=== PATIENT | female | born 1950 | race Caucasian/White ===

== ENCOUNTER 2018-09-22 19:32 | Emergency (ER) | payer MEDICARE, OTHER ==
[~2018-09-22] VITALS: Ht 180.3 cm; Wt 78.0 kg
[~2018-09-22 19:32] MED LIST: ALPRAZOLAM0.25 MG PO; AMITRIPTYLINE H50 MG PO; FENOFIBRATE145 MG; FLUOXETINE HCL20 MG PO; GABAPENTIN300 MG PO; LEVOTHYROXINE100 MCG PO; MELATONIN3 MG PO; OMEPRAZOLE40 MG PO; PRAVASTATIN SOD20 MG PO; ROPINIROLE HCL0.5 MG PO; TIZANIDINE HCL4 MG PO; ULTRAM50 MG PO
--- OUTSIDE RECORDS SUMMARY | 2018-09-22 19:34 | XMS REPORT | Summary of Care ---
Author Organization Unknown Address Unknown Phone Unavailable Encounter HQ Encntr_alias(FIN) [id number] Date(s): 09/26/14 - 09/26/14 [facility] Outpatient Imaging - [address] [address]- [place] Discharge Disposition: Home Physician Attending: Ronnie Milligan MD Reason for Visit 461.0 - AC MAXILLARY SI Problem List No data available for this section Allergies, Adverse Reactions, Alerts No data available for this section Medications No data available for this section Medications Administered During Your Visit No data available for this section Immunizations No data available for this section
--- OUTSIDE RECORDS SUMMARY | 2018-09-22 19:34 | XMS REPORT | Summary of Care ---
Author Author [facility] Address Unknown Phone Unavailable Encounter Encntr_alikailash([facility]) [phone] Date(s): 03/01/15 - 03/30/15 [facility] Discharge Disposition: Home Attending Physician: Rupesh Rowley MD Vital Signs No data available for this section Problem List No data available for this section Allergies, Adverse Reactions, Alerts No data available for this section Medications No data available for this section Results No data available for this section Immunizations No data available for this section Procedures No data available for this section Social History No data available for this section Assessment and Plan No data available for this section
--- OUTSIDE RECORDS SUMMARY | 2018-09-22 19:34 | XMS REPORT | Summary of Care ---
Author Author [facility] Outpatient Imaging [facility] Outpatient Imaging [facility] Address Unknown Phone Unavailable Encounter HQ Encntr_alias(FIN) [id number] Date(s): 10/08/15 - 10/08/15 [facility] Outpatient Imaging [facility] [address] [facility], [address] [place], [place] [id number] [place] [address] [phone] Discharge Disposition: Home Attending Physician: Ronnie Milligan MD Vital Signs No data available for [...]
--- OUTSIDE RECORDS SUMMARY | 2018-09-22 19:34 | XMS REPORT | Continuity of Care Document ---
Author Author [facility] Organization Interface Address Unknown Phone Unavailable Problems Problem Status Onset Date Classification Date Reported Comments Source UNK Active 11/07/2015 [facility] Z01.818 - ENCOUNTER FOR OTHER PREPROCEDU Active 10/08/2015 [facility] MS (<span ID="[id number]</span>) Active 08/16/1982 Problem 04/03/2016 [facility] [place] Anxiety Res[facility] [facility] Cholesterol level<sup>1</sup> Resolved Problem 04/03/[address] [facility] Depression [facility] Problem [facility]/03[facility] GERD - Gastro-esophageal reflux disease Resolved Problem 04/03/2016 [facility] Hypothyroidism Resolved Problem [facility]/03/[address] [facility] Final: Pain in left knee 02/01/2016 [facility] LEFT KNEE DJD Active [facility] UNILATERAL PRIMARY OSTEOARTHRITIS, LEFT Active [facility] PAIN IN LEFT KNEE Active [facility] JOINT CAMP S/P LT TKA Active [facility] Medications Medication Details Route Status Patient Instructions Ordering Provider Order Date Source dexamethasone 2 mg, 0.5 tab, Route: PO, Drug form: TAB, ONCE, Start date: 01/31/16 9:00:00 CDT, Stop date: 01/31/16 9:00:00 CDTNotes: Give with food. (Same As: Decadron) No Longer Active 01/31/2016 [facility] dexamethasone 4 mg, 1 tab, Route: PO, Drug form: TAB, ONCE, Start date: 01/30/16 9:00:00 CDT, Stop date: 01/30/16 9:00:00 CDTNotes: Give with food. (Same As: Decadron) Inactive 01/30/2016 [facility] tranexamic acid (ANES) Route: IV, Drug form: INJ, ONCE, Stop date: 01/30/16 7:26:00 CDT Inactive 01/30/2016 [facility] Saline Flush 0.9% 10 ml, Route: IVP, Drug Form: INJ, Dosing Weight 80, kg, Q12H, Start date: 01/29/16 21:00:00 CDT, Duration: 30 day, Stop date: 02/28/16 9:00:00 CDTNotes: (Same as: BD Posiflush) No Longer Active 01/30/2016 [facility] enoxaparin 40 mg/0.4 mL subcutaneous solution 40 mg=0.4 mL, SUB-Q, [id number], X 10 day, # 4 mL, 0 Refill(s) Active 01/29/2016 [facility] Saline Flush 0.9% 10 ml, Route: IVP, Drug Form: INJ, Dosing Weight 80, kg, PRN, PRN Line Flush, Start date: 01/29/16 9:54:00 CDT, Duration: 30 day, Stop date: 02/28/16 9:53:00 CDTNotes: (Same as: BD Posiflush) No Longer Active 01/29/2016 [facility] enoxaparin 40 mg/0.4 mL subcutaneous solution 40 mg=0.4 mL, SUB-Q, [id number], # 1 mL, 0 Refill(s), called to pharmacy Inactive 01/29/2016 [facility] dexamethasone 4 mg oral tablet 2 mg=0.5 tab, PO, ONCE, # 1 tab, 0 Refill(s) Active 01/29/2016 [facility] Acetaminophen 325 MG / Oxycodone Hydrochloride 10 MG Oral Tablet [Percocet 10/325] 1 tab, PO, Q4H, PRN Pain, # 90 tab, 0 Refill(s), given to patient No Longer Active 01/29/2016 [facility] Acetaminophen 325 MG / Oxycodone Hydrochloride 10 MG Oral Tablet [Percocet 10/325] 1 tab, Route: PO, Drug Form: TAB, Dosing Weight 79.091, kg, Q4H, PRN Pain Score 6-10, Start date: 01/29/16 9:18:00 CDT, Duration: 30 day, Stop date: 02/28/16 9:17:00 CDT Inactive 01/29/2016 [facility] Lovenox 40 mg, 0.4 mL, Route: SUB-Q, Drug form: INJ, [id number], Start date: 01/29/16 9:00:00 CDT, Duration: 30 day, Stop date: 02/27/16 9:00:00 CDTNotes: (Same as: Lovenox) No Longer Active 01/29/2016 [facility] dexamethasone 4 mg, 1 mL, Route: IV, Drug form: INJ, ONCE, Start date: 01/29/16 9:00:00 CDT, Stop date: 01/29/16 9:00:00 CDTNotes: Concentration: 4mg/ml Inactive 01/29/2016 [facility] Zofran 4 mg, 2 mL, Route: IVP, Drug form: INJ, Q6H, PRN Nausea & Vomiting, Start date: 01/29/16 8:00:00 CDT, Stop date: 02/28/16 7:59:00 CDTNotes: (Same as: Zofran) MEDICATION WASTE Product Size: 4 mg Product Wasted: ___ mg No Longer Active 01/29/2016 [facility] Vancomycin 6.67 MG/ML Injectable Solution 1,000 mg, Route: IVPB, [id number], Dosing Weight 80, kg, Time Critical Medication, Start date: 01/28/16 20:00:00 CDT, Duration: 2 doses or times, Stop date: 01/29/16 8:00:00 CDT, Pharmacy to adjust dose for renal functionNotes: TIME CRITICAL MEDICATION (Same As: Vancocin) Infusion rate 2001 mg: infuse over 2.5 hours MEDICATION WASTE Product Size: 1000 mg Product Wasted: ___ mg No Longer Active 01/29/2016 [facility] Docusate 100 mg, 1 cap, Route: PO, Drug form: CAP, BID, Dosing Weight 80, kg, Start date: 01/28/16 17:00:00 CDT, Duration: 30 day, Stop date: 02/27/16 9:00:00 CDTNotes: (Same as: Colace) (Do Not Crush) No Longer Active 01/28/2016 [facility] Ketorolac 15 mg, 1 mL, Route: IV, Drug form: INJ, Q8H, Dosing Weight 80, kg, Start date: 01/28/16 16:26:00 CDT, Duration: 2 day, Stop date: 01/30/16 16:00:00 CDTNotes: (Same as:Toradol) IV bolus must be given >15 seconds. Give IM administration slowly and deeply into the muscle. Not for use > 4 days. No Longer Active 01/28/2016 [facility] Tylenol 325 mg, 1 tab, Route: PO, Drug form: TAB, Q3H, PRN Pain Score 7-10, Start date: 01/28/16 16:20:00 CDT, Duration: 30 day, Stop date: 02/27/16 16:19:00 CDTNotes: Do not exceed 4 gm/day. (Same as: Tylenol) No Longer Active 01/28/2016 [facility] OxyIR 10 mg, 2 tab, Route: PO, Drug form: TAB, Q3H, PRN Pain Score 7-10, Start date: 01/28/16 16:20:00 CDT, Stop date: 02/27/16 16:19:00 CDTNotes: (Same as: Roxicodone) No Longer Active 01/28/2016 [facility] Zofran 4 mg, 2 mL, Route: IV, Drug form: INJ, Q8H, Dosing Weight 80, kg, Start date: 01/28/16 16:00:00 CDT, Duration: 3 doses or times, Stop date: 01/29/16 8:00:00 CDTNotes: (Same as: Zofran) MEDICATION WASTE Product Size: 4 mg Product Wasted: ___ mg No Longer Active 01/28/2016 [facility] Clindamycin 150 MG/ML Injectable Solution 600 mg, 50 mL, Route: IVPB, Drug form: INJ, Q6H, Dosing Weight 80, kg, Start date: 01/28/16 15:00:00 CDT, Duration: 3 doses or times, Stop date: 01/29/16 3:00:00 CDT No Longer Active 01/28/2016 [facility] Cleocin Phosphate (ANES) Route: IV, Drug form: INJ, ONCE, Stop date: 01/28/16 10:10:00 CDT Inactive 01/28/2016 [facility] ketOROLAC (ANES) IV, ONCE Inactive 01/28/2016 [facility] ondansetron (ANES) Route: IV, Drug form: INJ, ONCE, Stop date: 01/28/16 10:05:00 CDT Inactive 01/28/2016 [facility] Enoxaparin 40 mg, Route: SUB-Q, Drug form: INJ, [id number], Dosing Weight 80, kg, Start date: 01/28/16 10:00:00 CDT, Duration: 30 day, Stop date: 02/26/16 10:00:00 CDT Inactive 01/28/2016 [facility] Diphenhydramine 12.5 mg, 0.5 tab, Route: PO, Drug form: TAB, Q6H, Dosing Weight 80, kg, PRN Itching, Start date: 01/28/16 9:54:00 CDT, Duration: 30 day, Stop date: 02/27/16 9:53:00 CDT No Longer Active 01/28/2016 [facility] Bisacodyl 10 mg, 1 supp, Route: LA, Drug form: SUPP, Daily, Dosing Weight 80, kg, PRN Constipation, Start date: 01/28/16 9:54:00 CDT, Duration: 30 day, Stop date: 02/27/16 9:53:00 CDTNotes: (Same As: Dulcolax, Bisco-Lax) No Longer Active 01/28/2016 [facility] Dexamethasone 2 mg, Route: PO, ONCE, Dosing Weight 80, kg, Start date: 01/28/16 9:54:00 CDT, Stop date: 01/28/16 9:54:00 CDT Inactive 01/28/2016 [facility] Tranexamic Acid 1,000 mg, 10 mL, Route: IV, ONCE, Dosing Weight 80, kg, Start date: 01/28/16 9:54:00 CDT, Stop date: 01/28/16 9:54:00 CDTNotes: (Same As: Cyklokapron) Inactive 01/28/2016 [facility] Dilaudid 0.5 mg, 0.5 mL, Route: IV, Drug form: INJ, Q3H, Dosing Weight 80, kg, PRN Other -See Comment, Start date: 01/28/16 9:54:00 CDT, Duration: 30 day, Stop date: 02/27/16 9:53:00 CDT No Longer Active 01/28/2016 [facility] Acetaminophen 325 MG / Oxycodone Hydrochloride 10 MG Oral Tablet [Percocet 10/325] 1 tab, Route: PO, Drug Form: TAB, Dosing Weight 80, kg, Q3H, PRN Pain Score 7-10, Start date: 01/28/16 9:54:00 CDT, Duration: 30 day, Stop date: 02/27/16 9:53:00 CDT Inactive 01/28/2016 [facility] Zofran 4 mg, Route: IV, Q6H, Dosing Weight 80, kg, PRN Nausea, Start date: 01/28/16 9:54:00 CDT, Duration: 30 day, Stop date: 02/27/16 9:53:00 CDT Inactive 01/28/2016 [facility] Acetaminophen 325 MG / Hydrocodone Bitartrate 10 MG Oral Tablet [[place] 10/325] 1 tab, Route: PO, Drug Form: TAB, Dosing Weight 80, kg, Q3H, PRN Pain Score 4-6, Start date: 01/28/16 9:54:00 CDT, Duration: 30 day, Stop date: 02/27/16 9:53:00 CDTNotes: Do not exceed 4gm/day of acetaminophen. (Same as: [place] 325/10) No Longer Active 01/28/2016 [facility] Acetaminophen 325 MG / Hydrocodone Bitartrate 5 MG Oral Tablet [[place] 5/325] 1 tab, Route: PO, Drug Form: TAB, Dosing Weight 80, kg, Q3H, PRN Pain Score 1-3, Start date: 01/28/16 9:54:00 CDT, Duration: 30 day, Stop date: 02/27/16 9:53:00 CDTNotes: (Same as: [place] 325/5) Do not exceed 4gm/day of acetaminophen. No Longer Active 01/28/2016 [facility] sodium chloride 0.45% 1000 ml INJ 1,000 mL 1,000 mL, Rate: 75 ml/hr, Infuse over: 13.3 hr, Route: IV, Dosing Weight 80 kg, Total Volume: 1,000, Start date: 01/28/16 9:54:00 CDT, Duration: 30 day, Stop date: 02/27/16 9:53:00 CDT No Longer Active 01/28/2016 [facility] fentaNYL (ANES) Route: IV, Drug form: INJ, ONCE, Stop date: 01/28/16 8:42:00 CDT Inactive 01/28/2016 [facility] propofol (ANES) Route: IV, Drug form: INJ, ONCE, Stop date: 01/28/16 8:42:00 CDT Inactive 01/28/2016 [facility] midazolam (ANES) Route: IV, Drug form: SOLN, ONCE, Stop date: 01/28/16 8:37:00 CDT Inactive 01/28/2016 [facility] vancomycin (ANES) (ANES) Route: IV, Drug form: INJ, Start date: 01/28/16 8:10:00 CDT, Stop date: 01/28/16 9:10:00 CDT Inactive 01/28/2016 [facility] Calcium Chloride 0.0014 MEQ/ML / Potassium Chloride 0.004 MEQ/ML / Sodium Chloride 0.103 MEQ/ML / Sodium Lactate 0.028 MEQ/ML Injectable Solution 1,000 mL, Rate: 25 ml/hr, Infuse over: 40 hr, Route: IV, Dosing Weight 80 kg, Total Volume: 1,000, Start date: 01/28/16 7:54:00 CDT, Duration: 30 day, Stop date: 02/27/16 7:53:00 CDT Inactive 01/28/2016 [facility] LR 1000 mL INJ (ANES) Route: IV, Total Volume: 1,000, Start date: 01/28/16 7:10:00 CDT, Stop date: 01/28/16 8:10:00 CDT Inactive 01/28/2016 [facility] Tranexamic Acid 1,000 mg, Route: IV, ONCALL, Dosing Weight 80, kg, Start date: 01/28/16 7:00:00 CDT, Duration: 30 day, Stop date: 02/27/16 6:59:00 CDT Inactive 01/28/2016 [facility] Tylenol 1,000 mg, Route: PO, ONCALL, Dosing Weight 80, kg, Start date: 01/28/16 7:00:00 CDT, Duration: 30 day, Stop date: 02/27/16 6:59:00 CDT Inactive 01/28/2016 [facility] Oxycontin 10 mg, Route: PO, Drug form: ERTAB, ONCALL, Dosing Weight 80, kg, Start date: 01/28/16 7:00:00 CDT, Duration: 30 day, Stop date: 02/27/16 6:59:00 CDT Inactive 01/28/2016 [facility] Clindamycin 900 mg, Route: IVPB, ONCALL, Dosing Weight 80, kg, Start date: 01/28/16 7:00:00 CDT, Duration: 30 day, Stop date: 02/27/16 6:59:00 CDT Inactive 01/28/2016 [facility] Vancomycin 1,250 mg, Route: IVPB, ONCALL, Dosing Weight 80, kg, Start date: 01/28/16 7:00:00 CDT, Duration: 30 day, Stop date: 02/27/16 6:59:00 CDTNotes: TIME CRITICAL MEDICATION (Same As: Vancocin) Infusion rate 2001 mg: infuse over 2.5 hours MEDICATION WASTE Product Size: 1000 mg Product Wasted: ___ mg Inactive 01/28/2016 [facility] ropivacaine 100 mL, Route: InFILtration(local), Drug Form: INJ, Dosing Weight 80, kg, ONCALL, Start date: 01/28/16 7:00:00 CDT, Duration: 1 day, Stop date: 01/29/16 6:59:00 CDTNotes: NOT FOR IV use Ropivacaine 5 mg/mL (49.25 mL) Epinephrine 1 mg/mL (0.5 mL) Clonidine 0.1 mg/mL (0.8 mL) Ketorolac 30 mg/mL (1 mL) Normal Saline 48.45 mL No Longer Active 01/28/2016 [facility] celecoxib 200 mg, Route: PO, ONCALL, Dosing Weight 80, kg, (for CrCl > 90 mL/min), Start date: 01/28/16 7:00:00 CDT, Duration: 30 day, Stop date: 02/27/16 6:59:00 CDT Inactive 01/28/2016 [facility] Allergies, Adverse Reactions, Alerts Substance Category Reaction Severity Reaction type Status Date Reported Comments Source Ambien Assertion Drug allergy Active [facility] [place] codeine Assertion Drug allergy Active [facility] [place] Demerol HCl Assertion Drug allergy Active [facility] [place] erythromycin Assertion Drug allergy Active [facility] [place] Keflex Assertion Drug allergy Active [facility] [place] penicillins Assertion Drug allergy Active [facility] [place] Valium Assertion Drug allergy Active [facility] [place] Immunizations Immunization Date Given Site Status Last Updated Comments Source Results Order Name Results Value Reference Range Date Interpretation Comments Source CHEM PANEL eGFR 59 mL/min/1.73m2 01/29/2016 Result Comment: The eGFR is calculated using the CKD-EPI formula. In most young, healthy individuals the eGFR will be >90 mL/min/1.73m2. The eGFR declines with age. An eGFR of 60-89 may be normal in some populations, particularly the elderly, for whom the CKD-EPI formula has not been extensively validated. Use of the eGFR is not recommended in the following populations: Individuals with unstable creatinine concentrations, including patients and those with serious co-morbid conditions. Patients with extremes in muscle mass or diet. The data above are obtained from the National Kidney Disease Education Program (NKDEP) which additionally recommends that when the eGFR is used in patients with extremes of body mass index for purposes of drug dosing, the eGFR should be multiplied by the estimated BMI. [facility] CHEM PANEL Calcium Lvl 8.1 mg/dL 8.5 - 10.5 01/29/2016 [facility] CHEM PANEL CO2 24 meq/L 24 - 32 01/29/2016 [facility] CHEM PANEL Sodium Lvl 136 meq/L 135 - 145 01/29/2016 [facility] CHEM PANEL Chloride Lvl 102 meq/L 95 - 109 01/29/2016 [facility] CHEM PANEL Potassium Lvl 4.2 meq/L 3.5 - 5.1 01/29/2016 [facility] CHEM PANEL BUN 16 mg/dL 7 - 22 01/29/2016 [facility] CHEM PANEL Creatinine Lvl 1.01 mg/dL 0.50 - 1.40 01/29/2016 [facility] CHEM PANEL Glucose Lvl 112 mg/dL 70 - 99 01/29/2016 [facility] CHEM PANEL AGAP 14.2 meq/L 10.0 - 20.0 01/29/2016 [facility] HEMATOLOGY Monocytes # 1.3 K/CMM 0.0 - 0.8 01/29/2016 [facility] HEMATOLOGY Lymphocytes # 2.6 K/CMM 1.0 - 5.5 01/29/2016 [facility] HEMATOLOGY Monocytes 7.4 % 2.0 - 12.0 01/29/2016 [facility] Basophils 0.1 % 0.0 - 1.0 01/29/2016 [facility] Segs 76.8 % 45.0 - 75.0 01/29/2016 [facility] Lymphocytes 15.7 % 20.0 - 40.0 01/29/2016 [facility] Segs-Bands # 13.0 K/CMM 1.5 - 8.1 01/29/2016 [facility] RDW 14.7 % 11.5 - 14.5 01/29/2016 [facility] Platelet 265 K/CMM 133 - 450 01/29/2016 [facility] MPV 8.3 fL 7.4 - 10.4 01/29/2016 [facility] Hgb 9.9 g/dL 12.0 - 16.0 01/29/2016 [facility] MCV 91.9 fL 80.0 - 98.0 01/29/2016 [facility] Hct 30.8 % 36.0 - 48.0 01/29/2016 [facility] MCHC 32.0 g/dL 32.0 - 36.0 01/29/2016 [facility] MCH 29.4 pg 27.0 - 31.0 01/29/2016 [facility] WBC 16.9 K/CMM 3.7 - 10.4 01/29/2016 [facility] RBC 3.36 M/CMM 4.20 - 5.40 01/29/2016 [facility] CHEM PANEL Phosphorus 3.8 mg/dL 2.5 - 4.5 01/28/2016 [facility] CHEM PANEL Magnesium Lvl 2.1 mg/dL 1.8 - 2.4 01/28/2016 [facility] ELECTROLYTES AGAP 11.3 meq/L 10.0 - 20.0 01/28/2016 [facility] ELECTROLYTES eGFR 73 mL/min/1.73m2 01/28/2016 Result Comment: The eGFR is calculated using the CKD-EPI formula. In most young, healthy individuals the eGFR will be >90 mL/min/1.73m2. The eGFR declines with age. An eGFR of 60-89 may be normal in some populations, particularly the elderly, for whom the CKD-EPI formula has not been extensively validated. Use of the eGFR is not recommended in the following populations: Individuals with unstable creatinine concentrations, including patients and those with serious co-morbid conditions. Patients with extremes in muscle mass or diet. The data above are obtained from the National Kidney Disease Education Program (NKDEP) which additionally recommends that when the eGFR is used in patients with extremes of body mass index for purposes of drug dosing, the eGFR should be multiplied by the estimated BMI. [facility] ELECTROLYTES Calcium Lvl 8.3 mg/dL 8.5 - 10.5 01/28/2016 [facility] ELECTROLYTES CO2 29 meq/L 24 - 32 01/28/2016 [facility] ELECTROLYTES Chloride Lvl 105 meq/L 95 - 109 01/28/2016 [facility] ELECTROLYTES Potassium Lvl 4.3 meq/L 3.5 - 5.1 01/28/2016 [facility] ELECTROLYTES Sodium Lvl 141 meq/L 135 - 145 01/28/2016 [facility] ELECTROLYTES Creatinine Lvl 0.86 mg/dL 0.50 - 1.40 01/28/2016 [facility] ELECTROLYTES BUN 20 mg/dL 7 - 22 01/28/2016 [facility] ELECTROLYTES Glucose Lvl 130 mg/dL 70 - 99 01/28/2016 [facility] PTT 33.6 s 22.9 - 35.8 01/28/2016 [facility] Hct 33.5 % 36.0 - 48.0 01/28/2016 [facility] RDW 14.8 % 11.5 - 14.5 01/28/2016 [facility] MCHC 32.8 g/dL 32.0 - 36.0 01/28/2016 [facility] MCH 30.1 pg 27.0 - 31.0 01/28/2016 [facility] MCV 91.8 fL 80.0 - 98.0 01/28/2016 [facility] MPV 8.2 fL 7.4 - 10.4 01/28/2016 [facility] Platelet 238 K/CMM 133 - 450 01/28/2016 [facility] Hgb 11.0 g/dL 12.0 - 16.0 01/28/2016 [facility] RBC 3.65 M/CMM 4.20 - 5.40 01/28/2016 [facility] WBC 10.8 K/CMM 3.7 - 10.4 01/28/2016 [facility] PT 13.4 s 12.0 - 14.7 01/28/2016 [facility] INR 0.99 0.85 - 1.17 01/28/2016 [facility] HEMATOLOGY Lymphocytes 14.2 % 20.0 - 40.0 01/28/2016 [facility] HEMATOLOGY Segs 82.8 % 45.0 - 75.0 01/28/2016 [facility] HEMATOLOGY Monocytes 2.4 % 2.0 - 12.0 01/28/2016 [facility] HEMATOLOGY Basophils 0.2 % 0.0 - 1.0 01/28/2016 [facility] HEMATOLOGY Eosinophils 0.4 % 0.0 - 4.0 01/28/2016 [facility] HEMATOLOGY Segs-Bands # 8.9 K/CMM 1.5 - 8.1 01/28/2016 [facility] HEMATOLOGY Monocytes # 0.3 K/CMM 0.0 - 0.8 01/28/2016 [facility] HEMATOLOGY Lymphocytes # 1.5 K/CMM 1.0 - 5.5 01/28/2016 [facility] BLOOD BANK RESULTS Antibody Scrn Negative (01/28/16 6:39 AM) 01/28/2016 [facility] BLOOD BANK RESULTS ABO/Rh A POS 01/28/2016 [facility] Knee 1-2 Views unilateral DX Knee 1-2 Views unilateral DX Knee 1-2 Views unilateral DX CLINICAL HISTORY: Arthritis FINDINGS/IMPRESSION: 2 views of the left knee are submitted for review. Status post arthroplasty. Hardware in good position. Expected immediate postsurgical changes of the soft tissues. SL: [id number] 01/28/2016 - - Read by: Thomas Bravo MD Dictated Date/time: 01/28/16 11:07 Electronically Signed by: Thomas Bravo MD 01/28/16 11:07 FINAL REPORT [facility] BACTERIAL - SEROLOGY MRSA by PCR Negative (01/16/16 10:15 AM) 01/16/2016 [facility] BLOOD BANK RESULTS Antibody Scrn Negative (01/16/16 10:15 AM) 01/16/2016 [facility] BLOOD BANK RESULTS ABO/Rh A POS 01/16/2016 [facility] ELECTROLYTES AGAP 14.0 meq/L 10.0 - 20.0 01/16/2016 [facility] ELECTROLYTES eGFR 64 mL/min/1.73m2 01/16/2016 Result Comment: The eGFR is calculated using the CKD-EPI formula. In most young, healthy individuals the eGFR will be >90 mL/min/1.73m2. The eGFR declines with age. An eGFR of 60-89 may be normal in some populations, particularly the elderly, for whom the CKD-EPI formula has not been extensively validated. Use of the eGFR is not recommended in the following populations: Individuals with unstable creatinine concentrations, including patients and those with serious co-morbid conditions. Patients with extremes in muscle mass or diet. The data above are obtained from the National Kidney Disease Education Program (NKDEP) which additionally recommends that when the eGFR is used in patients with extremes of body mass index for purposes of drug dosing, the eGFR should be multiplied by the estimated BMI. [facility] ELECTROLYTES BUN 20 mg/dL 7 - 22 01/16/2016 [facility] ELECTROLYTES Chloride Lvl 104 meq/L 95 - 109 01/16/2016 [facility] ELECTROLYTES Creatinine Lvl 0.94 mg/dL 0.50 - 1.40 01/16/2016 [facility] ELECTROLYTES Potassium Lvl 4.0 meq/L 3.5 - 5.1 01/16/2016 [facility] ELECTROLYTES Sodium Lvl 140 meq/L 135 - 145 01/16/2016 [facility] ELECTROLYTES Calcium Lvl 9.3 mg/dL 8.5 - 10.5 01/16/2016 [facility] ELECTROLYTES CO2 26 meq/L 24 - 32 01/16/2016 [facility] ELECTROLYTES Glucose Lvl 98 mg/dL 70 - 99 01/16/2016 [facility] HEMATOLOGY Segs 31.1 % 45.0 - 75.0 01/16/2016 [facility] Lymphocytes 53.2 % 20.0 - 40.0 01/16/2016 [facility] HEMATOLOGY Monocytes 8.7 % 2.0 - 12.0 01/16/2016 [facility] HEMATOLOGY Eosinophils 5.7 % 0.0 - 4.0 01/16/2016 [facility] HEMATOLOGY Basophils 1.3 % 0.0 - 1.0 01/16/2016 [facility] RBC Morph Normal (01/16/16 10:15 AM) 01/16/2016 [facility] Plt Morph Normal (01/16/16 10:15 AM) 01/16/2016 [facility] Segs-Bands # 3.0 K/CMM 1.5 - 8.1 01/16/2016 [facility] Lymphocytes # 5.1 K/CMM 1.0 - 5.5 01/16/2016 [facility] Monocytes # 0.8 K/CMM 0.0 - 0.8 01/16/2016 [facility] HEMATOLOGY Eosinophils # 0.6 K/CMM 0.0 - 0.5 01/16/2016 [facility] HEMATOLOGY Basophils # 0.1 K/CMM 0.0 - 0.2 01/16/2016 [facility] HEMATOLOGY PTT 36.7 s 22.9 - 35.8 01/16/2016 [facility] HEMATOLOGY PT 12.7 s 12.0 - 14.7 01/16/2016 [facility] HEMATOLOGY INR 0.92 0.85 - 1.17 01/16/2016 [facility] RBC 4.27 M/CMM 4.20 - 5.40 01/16/2016 [facility] Hgb 12.7 g/dL 12.0 - 16.0 01/16/2016 [facility] Hct 38.4 % 36.0 - 48.0 01/16/2016 [facility] MCH 29.7 pg 27.0 - 31.0 01/16/2016 [facility] MCHC 33.0 g/dL 32.0 - 36.0 01/16/2016 [facility] RDW 15.0 % 11.5 - 14.5 01/16/2016 [facility] MPV 8.1 fL 7.4 - 10.4 01/16/2016 [facility] MCV 90.1 fL 80.0 - 98.0 01/16/2016 [facility] Platelet 327 K/CMM 133 - 450 01/16/2016 [facility] WBC 9.6 K/CMM 3.7 - 10.4 01/16/2016 [facility] URINE AND STOOL UA Color Ltyellow 01/16/2016 [facility] URINE AND STOOL UA Urobilinogen <=1.0 mg/dL 0.1 - 1.0 01/16/2016 [facility] URINE AND STOOL UA Sq Epi Occasional /LPF Few /LPF 01/16/2016 [facility] URINE AND STOOL UA WBC null 0 - 5 01/16/2016 [facility] URINE AND STOOL UA Leuk Est Negative (01/16/16 10:15 AM) Negative 01/16/2016 [facility] URINE AND STOOL UA Nitrite Negative (01/16/16 10:15 AM) Negative 01/16/2016 [facility] URINE AND STOOL UA Ketones Negative mg/dL Negative mg/dL 01/16/2016 [facility] URINE AND STOOL UA Bili Negative *NA* (01/16/16 10:15 AM) Negative 01/16/2016 [facility] URINE AND STOOL UA Blood Negative (01/16/16 10:15 AM) Negative 01/16/2016 [facility] URINE AND STOOL UA Glucose Negative mg/dL Negative mg/dL 01/16/2016 [facility] URINE AND STOOL UA pH 6.0 5.0 - 8.0 01/16/2016 [facility] URINE AND STOOL UA Protein Negative mg/dL Negative mg/dL 01/16/2016 [facility] URINE AND STOOL UA Turbidity Clear (01/16/16 10:15 AM) Clear 01/16/2016 [facility] URINE AND STOOL UA Spec Grav 1.005 <=1.030 01/16/2016 [facility] Chest 2 views DX Chest 2 views DX PA and lateral chest: The cardiomediastinal silhouette, pulmonary vasculature and kristi are within normal limits. The lungs and pleural spaces are clear. There are no significant osseous abnormalities. There is no significant change compared to 11/21/2015. IMPRESSION: No acute radiographic abnormalities in the chest. [id number] 01/16/2016 - - Read by: Brandon Negron MD Dictated Date/time: 01/16/16 11:56 Electronically Signed by: Brandon Negron MD 01/16/16 11:57 FINAL REPORT [facility] Chest 2 views DX Chest 2 views DX PA and lateral chest: The cardiomediastinal silhouette, pulmonary vasculature and kristi are within normal limits. The lungs and pleural spaces are clear. There are no significant osseous abnormalities. There is no significant change compared to 10/08/2015. IMPRESSION: No acute radiographic abnormalities in the chest. [id number] 11/21/2015 - - Read by: Brandon Negron MD Dictated Date/time: 11/21/15 14:05 Electronically Signed by: Brandon Negron MD 11/21/15 14:06 FINAL REPORT [facility] Chest 2 views DX Chest 2 views DX EXAM: XR CHEST 2 VIEWS DATE: 10/08/2015 1:14 PM [employer] INDICATION: [id number] Encounter for other preprocedural examination COMPARISON: None TECHNIQUE: PA and lateral chest radiographs FINDINGS: No lung parenchymal or pleural abnormalities are seen Kristi and pulmonary vasculature are normal. Cardiomediastinal silhouette is normal in appearance. No acute bony abnormality is identified. IMPRESSION: No cardiopulmonary abnormalities are seen. 10/08/2015 - - Read by: Cliff Roberson MD Dictated Date/time: 10/08/15 13:34 Electronically Signed by: Cliff Roberson MD 10/08/15 13:34 FINAL REPORT [facility] Vital Signs Vital Sign Value Date Comments Source Temperature Oral (F) 97.9 F 01/30/2016 [facility] Systolic (mm Hg) 142 01/30/2016 [facility] Diastolic (mm Hg) 75 01/30/2016 [facility] Heart Rate 79 01/30/2016 [facility] Heart Rate 80 01/29/2016 [facility] Systolic (mm Hg) 144 01/29/2016 [facility] Diastolic (mm Hg) 76 01/29/2016 [facility] Respitory Rate 14 01/29/2016 [facility] Systolic (mm Hg) 124 01/29/2016 [facility] Diastolic (mm Hg) 63 01/29/2016 [facility] Heart Rate 78 01/29/2016 [facility] Temperature Oral (F) 97.9 F 01/29/2016 [facility] Respitory Rate 16 01/29/2016 [facility] Temperature Oral (F) 98.0 F 01/29/2016 [facility] Respitory Rate 16 01/29/2016 [facility] Weight 79.091 01/28/2016 [facility] Height 180.34 cm 01/28/2016 [facility] BMI Calculated 24.32 01/28/2016 [facility] Weight 80 01/16/2016 [facility] BMI Calculated 24.6 01/16/2016 [facility] Height 180.34 cm 01/16/2016 [facility] Encounters Location Location Details Encounter Type Encounter Number Reason For Visit Attending Provider ADM Date DC Date Status Source [facility] [place] [facility] [id number] Ronnie Milligan 09/26/2014 09/27/2014 [facility] [place] [facility] - [place] [facility] [id number] Rupesh Rowley 01/03/2015 01/04/2015 [facility] [place] [facility] [id number] Rupesh Rowley 03/01/2015 03/31/2015 [facility] [place] [facility] [place] [facility] [id number] Ronnie Milligan 10/08/2015 10/09/2015 [facility] Inpatient [id number] Rupesh Rowley 01/28/2016 01/30/2016 [facility] [place] [facility] [id number] Rupesh Rowley 01/31/2016 03/01/2016 [facility] [place] [facility] [place] [facility] [id number] Rupesh Rowley 03/02/2016 04/01/2016 [facility] [place] Procedures Procedure Code Date Perfomer Comments Source Appendectomy [id number] [facility] [place] Arthroscopy [id number] [facility] [place] Epidural steroid injection [id number] [facility] [place] Tonsillectomy [id number] [facility] [place] Appendectomy [id number] [facility] Arthroscopy [id number] [facility] Epidural steroid injection [id number] [facility] Tonsillectomy [id number] [facility]
--- OUTSIDE RECORDS SUMMARY | 2018-09-22 19:35 | XMS REPORT | Summary of Care ---
Author Author [facility] Organization [facility] Address Unknown Phone Unavailable Encounter ANNETTE Strauss(JUANA) [id number] Date(s): 01/28/16 - 01/29/16 [facility] [address] [place] [address]- Final: Pain in left knee Discharge Disposition: Home Attending Physician: Rupesh Rowley MD Admitting Physician: Rupesh Rowley MD Referring Physician: Rupesh Rowley MD Vital Signs 1 2 3 Most recent to oldest [Reference Range]: 180.34 cm (01/28/16 4:52 PM) 180.34 cm (01/16/16 10:09 AM) Height 97.9 DegF (01/29/16 8:42 PM) 97.9 DegF (01/29/16 8:03 AM) 98.0 DegF (01/29/16 4:00 AM) Temperature Oral [96.4-99.1 DegF] 142/75 mmHg *HI* (01/29/16 8:42 PM) 144/76 mmHg *HI* (01/29/16 6:47 PM) 124/63 mmHg (01/29/16 8:03 AM) Blood Pressure [90-140/60-90 mmHg] 14 BRMIN (01/29/16 8:03 AM) 16 BRMIN (01/29/16 7:00 AM) 16 BRMIN (01/29/16 4:00 AM) Respiratory Rate [14-20 BRMIN] 79 bpm (01/29/16 8:42 PM) 80 bpm (01/29/16 6:47 PM) 78 bpm (01/29/16 8:03 AM) Peripheral Pulse Rate [60-100 bpm] 79.091 kg (01/28/16 4:52 PM) 80 kg (01/16/16 10:09 AM) Weight 24.32 m2 (01/28/16 4:52 PM) 24.6 m2 (01/16/16 10:09 AM) Body Mass Index Problem List Condition Effective Dates Status Health Status Informant Anxiety(Confirmed) Resolved Arthritis(Confirmed) Resolved Cholesterol Resolved level(Confirmed)1 Depression(Confirmed Resolved ) GERD - Resolved Gastro-esophageal reflux disease(Confirmed) Hypothyroidism(Confi Resolved rmed) MS (multiple 1983 Active sclerosis)(Confirmed ) 1high Allergies, Adverse Reactions, Alerts Substance Reaction Severity Status Ambien Active codeine Active Demerol HCl Active erythromycin Active Keflex Active penicillins Active Valium Active Medications bisacodyl 10 mg, 1 supp, Route: TN, Drug form: SUPP, Daily, Dosing Weight 80, kg, PRN Cons tipation, Start date: 01/28/16 9:54:00 CDT, Duration: 30 day, Stop date: 6 9:53:00 CDT Notes: (Same As: Dulcolax, Bisco-Lax) Start Date: 01/28/16 Stop Date: 01/30/16 Status: Discontinued celecoxib 200 mg, Route: PO, ONCALL, Dosing Weight 80, kg, (for CrCl > 90 mL/min), Start date: 01/28/16 7:00:00 CDT, Duration: 30 day, Stop date: 02/27/16 6:59:00 CDT Start Date: 01/28/16 Stop Date: 01/28/16 Status: Completed Cleocin Phosphate (ANES) Route: IV, Drug form: INJ, ONCE, Stop date: 01/28/16 10:10:00 CDT Start Date: 01/28/16 Stop Date: 01/28/16 Status: Completed clindamycin 900 mg, Route: IVPB, ONCALL, Dosing Weight 80, kg, Start date: 01/28/16 7:00:00 CDT, Duration: 30 day, Stop date: 02/27/16 6:59:00 CDT Start Date: 01/28/16 Stop Date: 01/28/16 Status: Completed clindamycin (SCIP) 600 mg, 50 mL, Route: IVPB, Drug form: INJ, Q6H, Dosing Weight 80, kg, Start jasen e: 01/28/16 15:00:00 CDT, Duration: 3 doses or times, Stop date: 01/29/16 3:00:0 0 CDT Start Date: 01/28/16 Stop Date: 01/29/16 Status: Completed dexamethasone 2 mg, 0.5 tab, Route: PO, Drug form: TAB, ONCE, Start date: 01/31/16 9:00:00 CDT , Stop date: 01/31/16 9:00:00 CDT Notes: Give with food.(Same As: Tiffanieadron) Start Date: 01/31/16 Stop Date: 01/30/16 Status: Canceled dexamethasone 2 mg, Route: PO, ONCE, Dosing Weight 80, kg, Start date: 01/28/16 9:54:00 CDT, S top date: 01/28/16 9:54:00 CDT Start Date: 01/28/16 Stop Date: 01/28/16 Status: Deleted dexamethasone 2 mg, Route: PO, ONCE, Dosing Weight 80, kg, Start date: 01/28/16 9:54:00 CDT, S top date: 01/28/16 9:54:00 CDT Start Date: 01/28/16 Stop Date: 01/28/16 Status: Deleted dexamethasone 4 mg, Route: PO, ONCE, Dosing Weight 80, kg, Start date: 01/28/16 9:54:00 CDT, S top date: 01/28/16 9:54:00 CDT Start Date: 01/28/16 Stop Date: 01/28/16 Status: Deleted dexamethasone 4 mg, Route: IV, ONCE, Dosing Weight 80, kg, Start date: 01/28/16 9:54:00 CDT, S top date: 01/28/16 9:54:00 CDT Start Date: 01/28/16 Stop Date: 01/28/16 Status: Deleted dexamethasone 10 mg, Route: IV, ONCE, Dosing Weight 80, kg, Start date: 01/28/16 9:54:00 CDT, Stop date: 01/28/16 9:54:00 CDT Start Date: 01/28/16 Stop Date: 01/28/16 Status: Completed dexamethasone 4 mg, 1 tab, Route: PO, Drug form: TAB, ONCE, Start date: 01/30/16 9:00:00 CDT, Stop date: 01/30/16 9:00:00 CDT Notes: Give with food.(Same As: Decadron) Start Date: 01/30/16 Stop Date: 01/30/16 Status: Canceled dexamethasone 4 mg, 1 mL, Route: IV, Drug form: INJ, ONCE, Start date: 01/29/16 9:00:00 CDT, S top date: 01/29/16 9:00:00 CDT Notes: Concentration: 4mg/ml Start Date: 01/29/16 Stop Date: 01/29/16 Status: Completed dexamethasone 4 mg oral tablet 2 mg=0.5 tab, PO, ONCE, # 1 tab, 0 Refill(s) Start Date: 01/29/16 Status: Ordered Dilaudid 0.5 mg, 0.5 mL, Route: IV, Drug form: INJ, Q3H, Dosing Weight 80, kg, PRN Other -See Comment, Start date: 01/28/16 9:54:00 CDT, Duration: 30 day, Stop date: 9:53:00 CDT Start Date: 01/28/16 Stop Date: 01/30/16 Status: Discontinued Dilaudid 0.2 mg, 0.2 mL, Route: IV, Drug form: INJ, Q3H, Dosing Weight 80, kg, PRN Other -See Comment, Start date: 01/28/16 9:54:00 CDT, Duration: 30 day, Stop date: 9:53:00 CDT Start Date: 01/28/16 Stop Date: 01/30/16 Status: Discontinued diphenhydrAMINE 12.5 mg, 0.5 tab, Route: PO, Drug form: TAB, Q6H, Dosing Weight 80, kg, PRN Itch ing, Start date: 01/28/16 9:54:00 CDT, Duration: 30 day, Stop date: 02/27/16 9:5 3:00 CDT Start Date: 01/28/16 Stop Date: 01/30/16 Status: Discontinued docusate 100 mg, 1 cap, Route: PO, Drug form: CAP, BID, Dosing Weight 80, kg, Start date: 01/28/16 17:00:00 CDT, Duration: 30 day, Stop date: 02/27/16 9:00:00 CDT Notes: (Same as: Colace) (Do Not Crush) Start Date: 01/28/16 Stop Date: 01/30/16 Status: Discontinued enoxaparin 40 mg, Route: SUB-Q, Drug form: INJ, [id number], Dosing Weight 80, kg, Start date: 01/28/16 10:00:00 CDT, Duration: 30 day, Stop date: 02/26/16 10:00:00 CDT Start Date: 01/28/16 Stop Date: 01/28/16 Status: Deleted enoxaparin 40 mg/0.4 mL subcutaneous solution 40 mg=0.4 mL, SUB-Q, [id number], X 10 day, # 4 mL, 0 Refill(s) Start Date: 01/29/16 Stop Date: 02/08/16 Status: Ordered enoxaparin 40 mg/0.4 mL subcutaneous solution 40 mg=0.4 mL, SUB-Q, [id number], # 1 mL, 0 Refill(s), called to pharmacy Start Date: 01/29/16 Stop Date: 01/29/16 Status: Discontinued fentaNYL (ANES) Route: IV, Drug form: INJ, ONCE, Stop date: 01/28/16 8:42:00 CDT Start Date: 01/28/16 Stop Date: 01/28/16 Status: Completed ketOROLAC 15 mg, 1 mL, Route: IV, Drug form: INJ, Q8H, Dosing Weight 80, kg, Start date: 0 01/28/16 16:26:00 CDT, Duration: 2 day, Stop date: 01/30/16 16:00:00 CDT Notes: (Same as:Toradol) IV bolus must be given >15 seconds. Give IM administration slowly and deeply into the muscle. Not for use > 4 days. Start Date: 01/28/16 Stop Date: 01/30/16 Status: Discontinued ketOROLAC (ANES) IV, ONCE Start Date: 01/28/16 Stop Date: 01/28/16 Status: Completed Lactated Ringers Injection IV 1000 mL 1,000 mL, Rate: 25 ml/hr, Infuse over: 40 hr, Route: IV, Dosing Weight 80 kg, To errol Volume: 1,000, Start date: 01/28/16 7:54:00 CDT, Duration: 30 day, Stop date : 02/27/16 7:53:00 CDT Start Date: 01/28/16 Stop Date: 01/28/16 Status: Discontinued Lovenox 40 mg, 0.4 mL, Route: SUB-Q, Drug form: INJ, [id number], Start date: 01/29/16 9:00 :00 CDT, Duration: 30 day, Stop date: 02/27/16 9:00:00 CDT Notes: (Same as: Lovenox) Start Date: 01/29/16 Stop Date: 01/30/16 Status: Discontinued LR 1000 mL INJ (ANES) Route: IV, Total Volume: 1,000, Start date: 01/28/16 7:10:00 CDT, Stop date: 8:10:00 CDT Start Date: 01/28/16 Stop Date: 01/28/16 Status: Completed midazolam (ANES) Route: IV, Drug form: SOLN, ONCE, Stop date: 01/28/16 8:37:00 CDT Start Date: 01/28/16 Stop Date: 01/28/16 Status: Completed [place] 10/325 oral tablet 1 tab, Route: PO, Drug Form: TAB, Dosing Weight 80, kg, Q3H, PRN Pain Score 4-6, Start date: 01/28/16 9:54:00 CDT, Duration: 30 day, Stop date: 02/27/16 9:53:00 CDT Notes: Do not exceed 4gm/day of acetaminophen. (Same as: [place] 325/10) Start Date: 01/28/16 Stop Date: 01/30/16 Status: Discontinued [place] 5/325 oral tablet 1 tab, Route: PO, Drug Form: TAB, Dosing Weight 80, kg, Q3H, PRN Pain Score 1-3, Start date: 01/28/16 9:54:00 CDT, Duration: 30 day, Stop date: 02/27/16 9:53:00 CDT Notes: (Same as: [place] 325/5) Do not exceed 4gm/day of acetaminophen. Start Date: 01/28/16 Stop Date: 01/30/16 Status: Discontinued ondansetron (ANES) Route: IV, Drug form: INJ, ONCE, Stop date: 01/28/16 10:05:00 CDT Start Date: 01/28/16 Stop Date: 01/28/16 Status: Completed oxyCONTIN 10 mg, Route: PO, Drug form: ERTAB, ONCALL, Dosing Weight 80, kg, Start date: 7:00:00 CDT, Duration: 30 day, Stop date: 02/27/16 6:59:00 CDT Start Date: 01/28/16 Stop Date: 01/28/16 Status: Completed OxyIR 10 mg, 2 tab, Route: PO, Drug form: TAB, Q3H, PRN Pain Score 7-10, Start date: 0 01/28/16 16:20:00 CDT, Stop date: 02/27/16 16:19:00 CDT Notes: (Same as: Roxicodone) Start Date: 01/28/16 Stop Date: 01/30/16 Status: Discontinued Percocet 10/325 oral tablet 1 tab, Route: PO, Drug Form: TAB, Dosing Weight 79.091, kg, Q4H, PRN Pain Score 6-10, Start date: 01/29/16 9:18:00 CDT, Duration: 30 day, Stop date: 02/28/16 9: 17:00 CDT Start Date: 01/29/16 Stop Date: 01/29/16 Status: Deleted Percocet 10/325 oral tablet 1 tab, Route: PO, Drug Form: TAB, Dosing Weight 80, kg, Q3H, PRN Pain Score 7-10 , Start date: 01/28/16 9:54:00 CDT, Duration: 30 day, Stop date: 02/27/16 9:53:0 0 CDT Start Date: 01/28/16 Stop Date: 01/28/16 Status: Deleted Percocet 10/325 oral tablet 1 tab, PO, Q4H, PRN Pain, # 90 tab, 0 Refill(s), given to patient Start Date: 01/29/16 Stop Date: 01/30/16 Status: Completed propofol (ANES) Route: IV, Drug form: INJ, ONCE, Stop date: 01/28/16 8:42:00 CDT Start Date: 01/28/16 Stop Date: 01/28/16 Status: Completed QUENTIN Pericapsular INJ 100 mL, Route: InFILtration(local), Drug Form: INJ, Dosing Weight 80, kg, ONCALL , Start date: 01/28/16 7:00:00 CDT, Duration: 1 day, Stop date: 01/29/16 6:59:00 CDT Notes: NOT FOR IV useRopivacaine 5 mg/mL (49.25 mL) Epinephrine 1 mg/mL (0.5 mL) Clonidine 0.1 mg/mL (0.8 mL) Ketorolac 30 mg/mL (1 mL) Normal Saline 48 .45 mL Start Date: 01/28/16 Stop Date: 01/30/16 Status: Discontinued Saline Flush 0.9% 10 ml, Route: IVP, Drug Form: INJ, Dosing Weight 80, kg, PRN, PRN Line Flush, St art date: 01/29/16 9:54:00 CDT, Duration: 30 day, Stop date: 02/28/16 9:53:00 CD T Notes: (Same as: BD Posiflush) Start Date: 01/29/16 Stop Date: 01/30/16 Status: Discontinued Saline Flush 0.9% 10 ml, Route: IVP, Drug Form: INJ, Dosing Weight 80, kg, Q12H, Start date: 01/28 21:00:00 CDT, Duration: 30 day, Stop date: 02/28/16 9:00:00 CDT Notes: (Same as: BD Posiflush) Start Date: 01/29/16 Stop Date: 01/30/16 Status: Discontinued sodium chloride 0.45% 1000 ml INJ 1,000 mL 1,000 mL, Rate: 75 ml/hr, Infuse over: 13.3 hr, Route: IV, Dosing Weight 80 kg, Total Volume: 1,000, Start date: 01/28/16 9:54:00 CDT, Duration: 30 day, Stop da te: 02/27/16 9:53:00 CDT Start Date: 01/28/16 Stop Date: 01/30/16 Status: Discontinued tranexamic acid 1,000 mg, Route: IV, ONCALL, Dosing Weight 80, kg, Start date: 01/28/16 7:00:00 CDT, Duration: 30 day, Stop date: 02/27/16 6:59:00 CDT Start Date: 01/28/16 Stop Date: 01/28/16 Status: Completed tranexamic acid (ANES) Route: IV, Drug form: INJ, ONCE, Stop date: 01/30/16 7:26:00 CDT Start Date: 01/30/16 Stop Date: 01/30/16 Status: Completed tranexamic acid + sodium chloride 0.9% INJ 90 mL 1,000 mg, 10 mL, Route: IV, ONCE, Dosing Weight 80, kg, Start date: 01/28/16 9:5 4:00 CDT, Stop date: 01/28/16 9:54:00 CDT Notes: (Same As: Cyklokapron) Start Date: 01/28/16 Stop Date: 01/28/16 Status: Completed Tylenol 1,000 mg, Route: PO, ONCALL, Dosing Weight 80, kg, Start date: 01/28/16 7:00:00 CDT, Duration: 30 day, Stop date: 02/27/16 6:59:00 CDT Start Date: 01/28/16 Stop Date: 01/28/16 Status: Completed Tylenol 325 mg, 1 tab, Route: PO, Drug form: TAB, Q3H, PRN Pain Score 7-10, Start date: 01/28/16 16:20:00 CDT, Duration: 30 day, Stop date: 02/27/16 16:19:00 CDT Notes: Do not exceed 4 gm/day. (Same as: Tylenol) Start Date: 01/28/16 Stop Date: 01/30/16 Status: Discontinued vancomycin (ANES) (ANES) Route: IV, Drug form: INJ, Start date: 01/28/16 8:10:00 CDT, Stop date: 01/28/16 9:10:00 CDT Start Date: 01/28/16 Stop Date: 01/28/16 Status: Completed vancomycin (SCIP) + sodium chloride 0.9% INJ 250 mL 1,000 mg, Route: IVPB, [id number], Dosing Weight 80, kg, Time Critical Medication, Start date: 01/28/16 20:00:00 CDT, Duration: 2 doses or times, Stop date: 8:00:00 CDT, Pharmacy to adjust dose for renal function Notes: TIME CRITICAL MEDICATION(Same As: Vancocin)Infusion rate< 1000 mg: infuse over 1 [id number] - 1500 mg: infuse over 1.5 [id number] - 2000 mg: infuse over 2 hours> 2001 mg: infuse over 2.5 hours MEDICATION WASTE Product Size: 1000 mgProduct Wasted: ___ mg Start Date: 01/28/16 Stop Date: 01/29/16 Status: Completed vancomycin + sodium chloride 0.9% 250 mL INJ (for IV set) 250 mL 1,250 mg, Route: IVPB, ONCALL, Dosing Weight 80, kg, Start date: 01/28/16 7:00:0 0 CDT, Duration: 30 day, Stop date: 02/27/16 6:59:00 CDT Notes: TIME CRITICAL MEDICATION(Same As: Vancocin)Infusion rate< 1000 mg: infuse over 1 [id number] - 1500 mg: infuse over 1.5 [id number] - 2000 mg: infuse over 2 hours> 2001 mg: infuse over 2.5 hours MEDICATION WASTE Product Size: 1000 mgProduct Wasted: ___ mg Start Date: 01/28/16 Stop Date: 01/28/16 Status: Completed Zofran 4 mg, 2 mL, Route: IVP, Drug form: INJ, Q6H, PRN Nausea & Vomiting, Start date: 01/29/16 8:00:00 CDT, Stop date: 02/28/16 7:59:00 CDT Notes: (Same as: Zofran) MEDICATION WASTE Product Size: 4 mgProduct Was mary jo: ___ mg Start Date: 01/29/16 Stop Date: 01/30/16 Status: Discontinued Zofran 4 mg, Route: IV, Q6H, Dosing Weight 80, kg, PRN Nausea, Start date: 01/28/16 9:5 4:00 CDT, Duration: 30 day, Stop date: 02/27/16 9:53:00 CDT Start Date: 01/28/16 Stop Date: 01/28/16 Status: Deleted Zofran 4 mg, 2 mL, Route: IV, Drug form: INJ, Q8H, Dosing Weight 80, kg, Start date: 16:00:00 CDT, Duration: 3 doses or times, Stop date: 01/29/16 8:00:00 CDT Notes: (Same as: Mack) MEDICATION WASTE Product Size: 4 mgProduct Was mary jo: ___ mg Start Date: 01/28/16 Stop Date: 01/29/16 Status: Completed Results BLOOD BANK RESULTS 1 2 3 Most recent to oldest [Reference Range]: A POS *Unknown* (01/28/16 6:39 AM) A POS *Unknown* (01/16/16 10:15 AM) ABO/Rh Negative (01/28/16 6:39 AM) Negative (01/16/16 10:15 AM) Antibody Scrn ELECTROLYTES 1 2 3 Most recent to oldest [Reference Range]: 136 mEq/L (01/29/16 7:00 AM) 141 mEq/L (01/28/16 3:01 PM) 140 mEq/L (01/16/16 10:15 AM) Sodium Lvl [135-145 mEq/L] 4.2 mEq/L (01/29/16 7:00 AM) 4.3 mEq/L (01/28/16 3:01 PM) 4.0 mEq/L (01/16/16 10:15 AM) Potassium Lvl [3.5-5.1 mEq/L] 102 mEq/L (01/29/16 7:00 AM) 105 mEq/L (01/28/16 3:01 PM) 104 mEq/L (01/16/16 10:15 AM) Chloride Lvl [95-109 mEq/L] 24 mEq/L (01/29/16 7:00 AM) 29 mEq/L (01/28/16 3:01 PM) 26 mEq/L (01/16/16 10:15 AM) CO2 [24-32 mEq/L] 14.2 mEq/L (01/29/16 7:00 AM) 11.3 mEq/L (01/28/16 3:01 PM) 14.0 mEq/L (01/16/16 10:15 AM) AGAP [10.0-20.0 mEq/L] CHEM PANEL 1 2 3 Most recent to oldest [Reference Range]: 1.01 mg/dL (01/29/16 7:00 AM) 0.86 mg/dL (01/28/16 3:01 PM) 0.94 mg/dL (01/16/16 10:15 AM) Creatinine Lvl [0.50-1.40 mg/dL] 59 mL/min/1.73m2 1 *NA* (01/29/16 7:00 AM) 73 mL/min/1.73m2 2 *NA* (01/28/16 3:01 PM) 64 mL/min/1.73m2 3 *NA* (01/16/16 10:15 AM) eGFR 16 mg/dL (01/29/16 7:00 AM) 20 mg/dL (01/28/16 3:01 PM) 20 mg/dL (01/16/16 10:15 AM) BUN [7-22 mg/dL] 112 mg/dL *HI* (01/29/16 7:00 AM) 130 mg/dL *HI* (01/28/16 3:01 PM) 98 mg/dL (01/16/16 10:15 AM) Glucose Lvl [70-99 mg/dL] 8.1 mg/dL *LOW* (01/29/16 7:00 AM) 8.3 mg/dL *LOW* (01/28/16 3:01 PM) 9.3 mg/dL (01/16/16 10:15 AM) Calcium Lvl [8.5-10.5 mg/dL] 3.8 mg/dL (01/28/16 3:01 PM) Phosphorus [2.5-4.5 mg/dL] 2.1 mg/dL (01/28/16 3:01 PM) Magnesium Lvl [1.8-2.4 mg/dL] 1Result Comment: The eGFR is calculated using the [...] from the National Kid[employer] Disease Education Program ( NKDEP) which additionally recommends that when the eGFR is used in patients with extremes of body mass index for purposes of drug dosing, the eGFR should be mul tiplied by the estimated BMI. 2Result Comment: The eGFR is calculated using the [...] from the National Kid[employer] Education Program ( NKDEP) which additionally recommends that when the eGFR is used in patients with extremes of body mass index for purposes of drug dosing, the eGFR should be mul tiplied by the estimated BMI. 3Result Comment: The eGFR is calculated using the [...] from the National Kid[employer] Disease Education Program ( NKDEP) which additionally recommends that when the eGFR is used in patients with extremes of body mass index for purposes of drug dosing, the eGFR should be mul tiplied by the estimated BMI. URINE AND STOOL 1 2 3 Most recent to oldest [Reference Range]: Clear (01/16/16 10:15 AM) UA Turbidity [Clear] Ltyellow *NA* (01/16/16 10:15 AM) UA Color 6.0 (01/16/16 10:15 AM) UA pH [5.0-8.0] 1.005 (01/16/16 10:15 AM) UA Spec Grav [<=1.030] Negative mg/dL *NA* (01/16/16 10:15 AM) UA Glucose [Negative mg/dL] Negative (01/16/16 10:15 AM) UA Blood [Negative] Negative mg/dL *NA* (01/16/16 10:15 AM) UA Ketones [Negative mg/dL] Negative mg/dL (01/16/16 10:15 AM) UA Protein [Negative mg/dL] <=1.0 mg/dL *NA* (01/16/16 10:15 AM) UA Urobilinogen [0.1-1.0 mg/dL] Negative *NA* (01/16/16 10:15 AM) UA Bili [Negative] Negative (01/16/16 10:15 AM) UA Leuk Est [Negative] Negative (01/16/16 10:15 AM) UA Nitrite [Negative] <1 /HPF (01/16/16 10:15 AM) UA WBC [0-5 /HPF] Occasional /LPF *NA* (01/16/16 10:15 AM) UA Sq Epi [Few /LPF] HEMATOLOGY 1 2 3 Most recent to oldest [Reference Range]: 16.9 K/CMM *HI* (01/29/16 7:00 AM) 10.8 K/CMM *HI* (01/28/16 3:01 PM) 9.6 K/CMM (01/16/16 10:15 AM) WBC [3.7-10.4 K/CMM] 3.36 M/CMM *LOW* (01/29/16 7:00 AM) 3.65 M/CMM *LOW* (01/28/16 3:01 PM) 4.27 M/CMM (01/16/16 10:15 AM) RBC [4.20-5.40 M/CMM] 9.9 g/dL *LOW* (01/29/16 7:00 AM) 11.0 g/dL *LOW* (01/28/16 3:01 PM) 12.7 g/dL (01/16/16 10:15 AM) Hgb [12.0-16.0 g/dL] 30.8 % *LOW* (01/29/16 7:00 AM) 33.5 % *LOW* (01/28/16 3:01 PM) 38.4 % (01/16/16 10:15 AM) Hct [36.0-48.0 %] 91.9 fL (01/29/16 7:00 AM) 91.8 fL (01/28/16 3:01 PM) 90.1 fL (01/16/16 10:15 AM) MCV [80.0-98.0 fL] 29.4 pg (01/29/16 7:00 AM) 30.1 pg (01/28/16 3:01 PM) 29.7 pg (01/16/16 10:15 AM) MCH [27.0-31.0 pg] 32.0 g/dL (01/29/16 7:00 AM) 32.8 g/dL (01/28/16 3:01 PM) 33.0 g/dL (01/16/16 10:15 AM) MCHC [32.0-36.0 g/dL] 14.7 % *HI* (01/29/16 7:00 AM) 14.8 % *HI* (01/28/16 3:01 PM) 15.0 % *HI* (01/16/16 10:15 AM) RDW [11.5-14.5 %] 265 K/CMM (01/29/16 7:00 AM) 238 K/CMM (01/28/16 3:01 PM) 327 K/CMM (01/16/16 10:15 AM) Platelet [133-450 K/CMM] 8.3 fL (01/29/16 7:00 AM) 8.2 fL (01/28/16 3:01 PM) 8.1 fL (01/16/16 10:15 AM) MPV [7.4-10.4 fL] 76.8 % *HI* (01/29/16 7:00 AM) 82.8 % *HI* (01/28/16 3:01 PM) 31.1 % *LOW* (01/16/16 10:15 AM) Segs [45.0-75.0 %] 15.7 % *LOW* (01/29/16 7:00 AM) 14.2 % *LOW* (01/28/16 3:01 PM) 53.2 % *HI* (01/16/16 10:15 AM) Lymphocytes [20.0-40.0 %] 7.4 % (01/29/16 7:00 AM) 2.4 % (01/28/16 3:01 PM) 8.7 % (01/16/16 10:15 AM) Monocytes [2.0-12.0 %] 0.4 % (01/28/16 3:01 PM) 5.7 % *HI* (01/16/16 10:15 AM) Eosinophils [0.0-4.0 %] 0.1 % (01/29/16 7:00 AM) 0.2 % (01/28/16 3:01 PM) 1.3 % *HI* (01/16/16 10:15 AM) Basophils [0.0-1.0 %] 13.0 K/CMM *HI* (01/29/16 7:00 AM) 8.9 K/CMM *HI* (01/28/16 3:01 PM) 3.0 K/CMM (01/16/16 10:15 AM) Segs-Bands # [1.5-8.1 K/CMM] 2.6 K/CMM (01/29/16 7:00 AM) 1.5 K/CMM (01/28/16 3:01 PM) 5.1 K/CMM (01/16/16 10:15 AM) Lymphocytes # [1.0-5.5 K/CMM] 1.3 K/CMM *HI* (01/29/16 7:00 AM) 0.3 K/CMM (01/28/16 3:01 PM) 0.8 K/CMM (01/16/16 10:15 AM) Monocytes # [0.0-0.8 K/CMM] 0.6 K/CMM *HI* (01/16/16 10:15 AM) Eosinophils # [0.0-0.5 K/CMM] 0.1 K/CMM (01/16/16 10:15 AM) Basophils # [0.0-0.2 K/CMM] Normal (01/16/16 10:15 AM) RBC Morph Normal (01/16/16 10:15 AM) Plt Morph 13.4 seconds (01/28/16 3:01 PM) 12.7 seconds (01/16/16 10:15 AM) PT [12.0-14.7 seconds] 0.99 (01/28/16 3:01 PM) 0.92 (01/16/16 10:15 AM) INR [0.85-1.17] 33.6 seconds (01/28/16 3:01 PM) 36.7 seconds *HI* (01/16/16 10:15 AM) PTT [22.9-35.8 seconds] BACTERIAL - SEROLOGY 1 2 3 Most recent to oldest [Reference Range]: Negative (01/16/16 10:15 AM) MRSA by PCR Immunizations No data available for this section Procedures Procedure Date Related Diagnosis Body Site Appendectomy Arthroscopy Epidural steroid injection Tonsillectomy Social History Social History Type Response Alcohol Current, Previous treatment: None. Smoking Status Former smoker; Exposure to Tobacco Smoke None; Other Tobacco Frequency hasnt smoked in 30 years; Cigarette Smoking Last 365 Days No; Reg Smoking Cessation Counseling No Assessment and Plan Extracted from: Title: Clinical Document Author: Rupesh Rowley MD Date: 01/29/16 Admit Date: 01/28/2016 Discharge Date: 01/29/2016 Reason for Hospitalization: s/p left TKA Patient was admitted to the floor s/p Left TKA. Pt tolerated the surgery well and vital signs were stable in the post operative period. Pt recieved 24 hr abx prohlyaxis, DVT prophlaxis was started within 23 hrs of surgery, and was cleared for d/c home by PT on POD# 1. Discharge Instructions WBAT no ROM restrictions f/u Dr. Rupesh Rowley on 02/19/2016 Discharge Medications Lovenox 40 mg SubQ Q24hr for 10 days post-op Percocet 10/325 1-2 tab PO Q4-6Hr PRN Pain Continue all home medcations Contact [facility] if: Fever > 101.5 Increasing pain Redness along incision purulent drainage Extracted from: Title: Ortho PN POD#1 Author: Rupesh Rowley MD Date: 01/29/16 Progress Daily [facility] Completed: Jan, 11:34 by Rupesh Rowley MD RM: 234 - 2W, SE CICI [id number] (: 1950) F Attending: [facility]up[facility]: Service: Orthopedic Surgery Service Reason for Admission: UNK Working DRG: None Documented Code status: None Specified=FULL CODECurrent diet: Isolation: None Documented Allergies: Keflex, penicillins, erythromycin, Ambien, codeine, Demerol HCl, Valium SUBJECTIVE no complaints, minimal pain OBJECTIVE incision CDI LT I m/l/p/d/fdws +GS TA FHL EHL CR brisk no clincal signs of DVT ASSESSMENT & EXAM s/p left TKA, POD#1 PLAN & TREATMENT abx prophylaxis VSSS, Hg stable acute blood loss anemia lovenox for DVT prophylaxis OOB w/ PT d/c home if cleared by PT 24hr Labs 01/28 0700 Glucose Wsb441 H BUN16 Creatinine Lvl1.01 Sodium Rhd044 Potassium Lvl4.2 Chloride Lmn266 CO224 AGAP14.2 Calcium Lvl8.1 L eGFR59 WBC16.9 H RBC3.36 L Hgb9.9 L Hct30.8 L MCV91.9 MCH29.4 MCHC32.0 RDW14.7 H Kxyxwvax559 MPV8.3 Segs76.8 H Monocytes7.4 Fhltimsysry46.7 L Basophils0.1 Segs-Bands #13.0 H Lymphocytes #2.6 Monocytes #1.3 H 01/27 1501 Glucose Ugh564 H BUN20 Creatinine Lvl0.86 Sodium Aoi294 Potassium Lvl4.3 Chloride Tpt777 CO229 AGAP11.3 Calcium Lvl8.3 L eGFR73 Magnesium Lvl2.1 Phosphorus3.8 WBC10.8 H RBC3.65 L Hgb11.0 L Hct33.5 L MCV91.8 MCH30.1 MCHC32.8 RDW14.8 H Ephlcxdh790 MPV8.2 Segs82.8 H Monocytes2.4 Cddhoacnaho92.2 L Eosinophils0.4 Basophils0.2 Segs-Bands #8.9 H Lymphocytes #1.5 Monocytes #0.3 PT13.4 INR0.99 PTT33.6 VitalsTmp(F)[id number] 01/28 08:[id number]--- 01/28 07:00 1692 2.0L/m 01/28 04:[id number]--- 01/28 00:[id number]--- 01/27 20:56 1696--- 24 Hr Tmax: 98.0F (36.67c) at 01/28 04:00Vital Signs are the last 5 in the past 48 hours. DateWt(kg)Wt(lb)Ht(cm)Ht(in)Method 01/27 79.09 [id number] 71.00Measured 01/15 (initial) 80.00 176.00Measured 80.34 71.00Stated I&ORecordInOutBal 1524hr Tot 252 0 252 1424hr Tot 8119 275 7844 Medications (32) Active Scheduled Meds (4): 01/28/16 docusate 100 mg PO BID 01/29/16 enoxaparin (Lovenox) 40 mg SUB-Q [id number] 01/28/16 ketOROLAC 15 mg IV Q8H 01/29/16 sodium chloride (Saline Flush 0.9%) 10 ml IVP Q12H Unscheduled Meds (1): 01/28/16 ropivacaine (QUENTIN Pericapsular INJ) 100 mL InFILtration(local) ONCALL PRN Meds (10): 01/28/16 acetaminophen-hydrocodone ([place] 5/325 oral tablet) 1 tab PO Q3H 01/28/16 acetaminophen-hydrocodone ([place] 10/325 oral tablet) 1 tab PO Q3H 01/28/16 acetaminophen (Tylenol) 325 mg PO Q3H 01/28/16 bisacodyl 10 mg TN Daily 01/28/16 diphenhydrAMINE 12.5 mg PO Q6H 01/28/16 hydromorphone (Dilaudid) 0.2 mg IV Q3H 01/28/16 hydromorphone (Dilaudid) 0.5 mg IV Q3H 01/29/16 ondansetron (Zofran) 4 mg IVP Q6H 01/28/16 oxyCODONE (OxyIR) 10 mg PO Q3H 01/29/16 sodium chloride (Saline Flush 0.9%) 10 ml IVP PRN One Time Meds (16): (Completed) clindamycin (Cleocin Phosphate (ANES)) IV ONCE 01/28/16 (Completed) dexamethasone 10 mg IV ONCE 01/28/16 (Deleted) dexamethasone 4 mg IV ONCE 01/28/16 (Deleted) dexamethasone 4 mg PO ONCE 01/28/16 (Deleted) dexamethasone 2 mg PO ONCE 01/28/16 (Deleted) dexamethasone 2 mg PO ONCE 01/29/16 (Completed) dexamethasone 4 mg IV ONCE 01/30/16 (Ordered) dexamethasone 4 mg PO ONCE 01/31/16 (Ordered) dexamethasone 2 mg PO ONCE 02/01/16 (Ordered) dexamethasone 2 mg PO ONCE (Completed) fentaNYL (fentaNYL (ANES)) IV ONCE (Completed) ketOROLAC (ketOROLAC (ANES)) IV ONCE (Completed) midazolam (midazolam (ANES)) IV ONCE (Completed) ondansetron (ondansetron (ANES)) IV ONCE (Completed) propofol (propofol (ANES)) IV ONCE 01/28/16 (Completed) tranexamic acid + sodium chloride 0.9% INJ 90 mL 1,000 mg IV ONCE 12.5 ml/hr Continuous Infusions (1): 01/28/16 sodium chloride 0.45% 1000 ml INJ 1,000 mL 1,000 mL 75 ml/hr Extracted from: Title: Clinical Document Author: Rupesh Rowley MD Date: 01/28/16 TKA Operative Note Date: 01/28/2016 Location: [facility] Attending: Rupesh Rowley MD Pre-op dx: Left knee osteoarthritis Post-op dx: Left knee osteoarthritis Procedure: Left total knee arthroplasty Anesthesiologist: Dr. Carbone; Brandon Tobin CRNA Anesthesia: General, Dilaudid Spinal [employer] Supervisor: KOLTON Tinsley T-time: _ EBL: minimal UOP: no melo IVF: see anesthesia note Transfusion: none reuqired Implants: [employer] Femur: 6, narrow, legion, oxinium, CR Tibia: 5, Gi 2 Polyethylene: 9 mm, dished, xlink Patella: 32 mm Cement: Brenda Simplex Abx Cement, 2 packs Resections: Femur: alignment: 5 deg level: valgus Tibia: slope: 4 degree Level: 2 mm, medial Clinical Indications: Patient is a 65 yo female with a diagnosis of knee osteoarthritis status post an extensive conservative medical management program including physical therapy with home exercise program, injections, and anti-inflammatories. Patient has exhausted all non-operative management options but has persistent pain and disability from the arthritis. X-rays demonstrate end stage joint space narrowing with bone on bone articulation involving the medial, lateral, and patellofemoral compartments of the knee. Intraoperative evaluation showed complete destruction of the cartilage surfaces in the medial, lateral, and patellofemoral compartments of the knee. Patient understands the risks, benefits, rational, and rehabilitation process inherent with a total knee arthroplasty. Patient expressed understanding that risks include but not limited to bleeding, pain, infection, damage to nearby structures: vessels, tendons, nerves and ligaments, hardware failure, loosening, fracture, need for revision surgery, blood clots in the legs and lungs, stroke, heart attack, and . The patient agreed and gave consent to surgery as indicated. Patient also understands the risks and benefits of blood transfusions. Risks including possible transmission of virus or bacteria, and transfusion reactions. Patient understood these risks and gave consent for transfusion as indicated. Procedure Note: Positioning: Patient brought into the OR and placed supine on the OR table. After successful an anesthetic was applied, a melo catheter was placed. The Left lower extremity was then prepped and draped in the standard fashion with a non-sterile tourniquet on the proximal thigh. A surgical time-out was completed, antibiotics, surgical site, and allergies were confirmed. The operative extremity was then exsanguinated with the esmarch and the tourniquet was inflated. Approach: An anterior incision was centered over the knee with a 10 blade scalpel, and dissection was taken down to the retinacular layer. A medial parapatellar arthrotomy was completed in the standard fashion. We then resected the anterior distal femur synovium, infrapatellar fat pad, anterior horn of the lateral meniscus, and anterior cruciate ligament. A medial proximal tibia release was completed in the standard fashion. The patella was everted, the patella resection was completed in the standard fashion at the level of the lateral facet. The patella was sized then drilled in the standard fashion. Femur: The intramedullary canal of the femur and tibia was accessed with drill and Charnley awl. A distal femoral cutting block was placed with the intramedullary guide and the distal femoral resection was completed with the oscillating saw. The femur was sized and the corresponding 4 in 1 cutting block was placed, anteriorized 2 mm to prevent notching. The anterior, posterior, and chamfer resections were completed. The bone cuts were refined with rongeur and osteotomes, Tibia: The tibia was subluxed anteriorly and the posterior cruciate ligament was partially released. Retractors were placed to protect the collateral ligaments. The intramedullary cutting block was placed and stabilized. The proximal tibial resection was completed with the oscillating saw and refined with tibia rasp. The tibia was sized then broached in the standard fashion. The posterior compartment was accessed. We resected the menisci, posterior and notch osteophytes. Trialing/Balancing: The knee was trialed with a 9 mm insert. The construct was able to achieve full extension, 135 degrees of flexion, with excellent patellar tracking, The construct was stable to varus and valgus stress with physiologic laxity Cementing: The bone surfaces were irrigated with 1 liter of normal saline fluid then dried. The posterior lateral corner was coagulated and bone grafted the tibia canal. The bone cement was applied under finger pressurization. The tibia component was impacted, excess bone cement was removed circumferenecially. The femur component was then impacted and excess bone cement was removed in flexion and extension. Lastly, the patella was everted and cemented into place. The liner was the implacted in the standard fashion. The entire operative field was irrigated with 2 liters of normal saline. Closure: The arthrotomy was closed with #1 ethibond sutures. Scarpas fascia was closed with inverted O vicryls. The skin was closed with inverted subcutaneous 2-O vicryls and a running 4-O monocryl. The wound was dressed with dermabond, adaptic, 4x4 s, abd pads, and an tiana wrap. Tourniquet was released after the dressing was placed and tranexemic acid was given during the closure. The entire procedure was completed with the attending surgeon. Laminar air flow body exhaust suits were worn for the entire procedure. A accounts payable assistant was utilized for the entire procedure. The accounts payable assistant aided in positioning, retraction, implant sizing/implementation, and closure. The accounts payable assistant decreased surgical time and therefore brigitte-operative morbidity. Post-op Dispo: Patient will be admitted to the floor, receive 24 hours of intravenous antibiotics, and DVT prophylaxis. The patient can weight bear as tolerated with no range of motion requirements. Extracted from: Title: Clinical Document Author: Rupesh Rowley MD Date: 01/25/16 CC: left knee pain HISTORY OF PRESENT ILLNESS: The patient is a 65-year-old female with left knee pain going on for the past year. The patient describes the pain as constant dull ache with dramatic increase over the past month. The patient describes the pain isolated to the anterior medial aspect of the left knee, 10/10 severity, constant dull ache, sharp intermittent exacerbations, chronic, aggravated by progressive ambulation, going up and downstairs, twisting and pivoting, progressive ambulation with significant popping and locking sensations. The patient's previous treatments include steroid injections, physical therapy as well as antiinflammatories, both topical and oral. At this point, the patient has failed conservative management. PAST MEDICAL HISTORY: Asthma, depression, hay fever, hemorrhoids, psoriasis, thyroid disease, and multiple sclerosis. PAST SURGICAL HISTORY: Include shoulder arthroscopy and appendectomy. CURRENT MEDICATIONS: Omeprazole, pravastatin, levothyroxine, alprazolam, bupranolol, and amitriptyline. ALLERGIES: ADVERSE REACTIONS TO VALIUM, DEMEROL, CODEINE, AMBIEN, PENICILLIN, AND KEFLEX. SOCIAL HISTORY: The patient denies smoking, alcohol, and drug use. FAMILY HISTORY: Positive for coronary artery disease, hypertension, arthritis, and cancer. REVIEW OF SYSTEMS: A 12-system review of systems questionnaire was completed by the patient and reviewed by the MD. Systems evaluated include general, skin, HEENT, psychiatric, pulmonary, , GI, musculoskeletal, lymphatics, endocrine, cardiovascular, and neurologic. Pertinent positives are limited to musculoskeletal. Please see HPI for further details. PHYSICAL EXAMINATION: GENERAL: The patient has a normal body habitus. No acute distress. PSYCHIATRIC: Alert and oriented x3. Demonstrates proper mood and affect. ABDOMEN: Soft, nontender, and nondistended. GAIT: Normal. SKIN: No evidence of soft tissue swelling or ecchymosis. The patient has 1+ effusion. EYES: Sclerae are normal. Extraocular movements are intact. CARDIOVASCULAR: 1+ DP pulse bilaterally. NEUROLOGIC: Motor exam, 5/5 motor strength in bilateral hip flexors, quads, hamstrings, TA, EHL, and GS. Light touch intact in L2 through S1 dermatomal distributions. 1+ DTRs bilaterally. C-spine range of motion within normal limits. No midline tenderness to palpation of the cervical, thoracic, or lumbar spine. The patient's left knee demonstrates tenderness under patella as well as medial compartment, joint line tenderness to palpation and antalgic gait. The patient's left knee demonstrates range of motion of 0-100 degrees, 5 degrees alignment, trace varus-valgus laxity, trace anterior-posterior laxity, extension lag is 0, flexion contracture is negative, tibial bow is negative. X-RAYS: X-rays demonstrate [id number] articulation in the patellofemoral joint, subchondral sclerosis of the medial and lateral compartment, and periarticular osteophytes in the medial and patellofemoral joint. Long alignment film demonstrated normal alignment ASSESSMENT: The patient has left knee end-stage osteoarthritis, M17.12. MEDICAL JUSTIFICATION: The patient is a 65-year-old female with greater than 1- year history of severe left knee pain aggravated by weightbearing, progressive ambulation. The patient's pain provides significant limitation of activities of daily living including prolonged ambulation and going up and down stairs. The patient's physical exam demonstrates antalgic gait, severe pain on passive range of motion, palpable crepitus, limited range of motion, flexion to 100 degrees as listed above. X-rays demonstrate [id number] articulation of the patellofemoral joint, subchondral sclerosis of the medial with periarticular osteophytes in the medial and patellofemoral joint. Previous treatments include steroid injections, both oral and topical antiinflammatories as well as home exercise and therapy. The patient has maximized conservative management and now fails conservative management. PLAN: Left Total Knee Arthroplasty Lovenox for DVT prophylaxis. Candidate for tranexamic acid, Toradol, and steroid taper. [employer] instrumentation. The risks and benefits were discussed at length with the patient. Risks of surgery include bleeding, pain, infection, damage to nearby structures (vessels, tendons, and nerves), hardware failure or loosening, need for revision surgery, possibility of blood clots in legs or lungs, stroke, heart attack, and . We also discussed the possibility of requiring a blood transfusion. The patient understands the risk of transfusion including possible transmission of virus or bacteria, and possible transfusion reaction. The patient understood the risk and gave consent for transfusion as indicated.
--- OUTSIDE RECORDS SUMMARY | 2018-09-22 19:35 | XMS REPORT | Summary of Care ---
Author Author Luciano Sierra, Rama Oshea Unknown Address Unknown Phone Unavailable Care Team Providers Care Hand Box Folder Name Role Phone REI Agarwal, YURI Woodson Unavailable Rama Wolf R.N. Unavailable Unavailable SHARRI Agarwal, SHERRON Unavailable Unavailable REI COTTO [place], YURI CHAWLA Unavailable Unavailable LOLY COTTO, KIRK PENA Unavailable Unavailable CHANTEL ESCALANTE [place], WILTON Montaño Unavailable Unavailable BELINDA COTTO [place], IVANNA Mcgarry Unavailable Unavailable Unavailable Unavailable Functional Status Name Dates Details Functional status health issues are not documented Status: Name Dates Details Cognitive status health issues are not documented Status: Problems Name Dates Details Reactive airway disease (493.90, J45.909) Status: Active Need for influenza vaccination (V04.81, Z23) Status: Active Decreased libido (799.81, R68.82) Status: Active Internal derangement of knee (717.9, M23.90) Status: Active TMJ (temporomandibular joint disorder) (524.60, M26.609) Status: Active Need for vaccination with 13-polyvalent pneumococcal conjugate vaccine (V03.82, Z23) Status: Active Tear of meniscus, current (836.2, S83.209A) Status: Active Annual physical exam (V70.0, Z00.00) Status: Active Headache (784.0, R51) Status: Active Muscle spasm (728.85, M62.838) Status: Active Visual disturbances (368.9, H53.9) Status: Active Other elevated white blood cell (WBC) count (288.69, D72.828) Status: Active Flu vaccine need (V04.81, Z23) Status: Active Hyperlipidemia (272.4, E78.5) Status: Active Coronary arteriosclerosis (414.00, I25.10) Status: Active Coronary artery spasm (413.9, I20.1) Status: Active Insomnia (780.52, G47.00) Status: Active Well female exam with routine gynecological exam (V72.31, Z01.419) Status: Active Visit for screening mammogram (V76.12, Z12.31) Status: Active Osteopenia (733.90, M85.80) Status: Active Colon cancer screening (V76.51, Z12.11) Status: Active Encounter for mini-mental status examination Status: Active Lymphedema (457.1, I89.0) Status: Active Elevated brain natriuretic peptide (BNP) level (790.99, R79.89) Status: Active SOBOE (shortness of breath on exertion) (786.05, R06.02) Status: Active Limb pain (729.5, M79.609) Status: Active Gastro-esophageal reflux disease with esophagitis (530.11, K21.0) Status: Active Tinnitus of left ear (388.30, H93.12) Status: Active Varicose veins with complications (454.8, I83.899) Status: Active Venous insufficiency of leg (459.81, I87.2) Status: Active Varicose veins of legs (454.9, I83.93) Status: Active Hypothyroidism (244.9, E03.9) Status: Active 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, F06.31) Status: Active Multiple sclerosis (340, G35) Status: Active Anxiety (300.00, F41.9) Status: Active Depressive disorder (311, F32.9) Status: Active Acute non-recurrent maxillary sinusitis (461.0, J01.00) Status: Active Chronic pain of left knee (719.46, M25.562) Status: Active Allergic rhinitis (477.9, J30.9) Status: Active Chronic fatigue (780.79, R53.82) Status: Active Restless legs syndrome (333.94, G25.81) Status: Active Medications Name Dates Details ALPRAZolam 0.25 MG Oral Tablet taking 1/2 or 1 tablet as needed Quantity: 30 HARRELL MNasirDSHERRON Best Active Omeprazole 40 MG Oral Capsule Delayed Release TAKE 1 CAPSULE BY MOUTH EVERY DAY * Quantity: 90 Refills: 0 YUIR MINAYA M.D. * Start : 02-May-2018 Active Vitamin E 1000 UNIT Oral Capsule 2 capsules daily * Refills: 0 Active Vitamin C CAPS one tab daily * Refills: 0 Active Fenofibrate 145 MG Oral Tablet TAKE 1 TABLET BY MOUTH ONCE DAILY * Quantity: 30 Refills: 0 YURI MINAYA M.D. * Start : 11-Apr-2018 Active Benadryl 25 MG TABS 2 tabs qhs * Refills: 0 Active TiZANidine HCl - 4 MG Oral Tablet 1 1/2 at bedtime * Refills: 0 Active Hydrocodone-Acetaminophen 5-325 MG Oral Tablet 1-2 TABLETS PO Q 6 HRS PRN PAIN * Refills: 0 Active FLUoxetine HCl - 20 MG Oral Tablet TAKE 1 TABLET DAILY. * Quantity: 30 Refills: 2 Active Pramipexole Dihydrochloride ER 1.5 MG Oral Tablet Extended Release 24 Hour One QD in the evening * Quantity: 30 Refills: 3 YURI MINAYA M.D. * Start : 17-Jun-2018 Active Levothyroxine Sodium 150 MCG Oral Tablet TAKE 1 TABLET DAILY. * Quantity: 90 Refills: 0 YURI MINAYA M.D. * Start : 21-Jun-2018 Active Allergies and Adverse Reactions Name Dates Details Ambien TABS (Allergy) Status: Active Codeine Derivatives (Allergy) Status: Active Demerol SOLN (Allergy) Status: Active Doxycycline Hyclate CAPS (Allergy) Status: Active E.E.S. 400 TABS (Allergy) Status: Active Keflex CAPS (Allergy) Status: Active Penicillins (Allergy) Status: Active Valium TABS (Allergy) Status: Active Past Medical History Name Dates Details History of Acute maxillary sinusitis (461.0, J01.00) Status: Resolved History of Acute non-recurrent maxillary sinusitis (461.0, J01.00) Status: Resolved History of chronic fatigue (V13.89, Z87.898) Status: Resolved History of Multiple sclerosis (340, G35) Status: Resolved History of Visit for screening mammogram (V76.12, Z12.31) Status: Resolved Procedures Procedure Dates Details [QL] CBC (INCLUDES DIFF/PLT) Date: 17-Jun-2018 [QLH] CMP W/EGFR Date: 17-Jun-2018 [QLH] TSH, 3RD GENERATION W/REFLEX TO FT4 Date: 17-Jun-2018 [QL] TESTOSTERONE, TOTAL Date: 17-Jun-2018 History of Appendectomy Completed History of Tonsillectomy With Adenoidectomy Completed History of Sinus Surgery Completed Immunization Name Dates Details Influenza on: 01-May-2009 Fluzone INJ Lot #: [id number] on: 17-Jul-2013 Fluzone INJ Lot #: [id number] on: 20-Apr-2014 Fluvirin 0.5 ML Intramuscular Suspension Prefilled Syringe Lot #: [id number] on: 30-Apr-2015 Prevnar 13 Intramuscular Suspension Lot #: [id number] on: 12-Jun-2015 Fluzone Quadrivalent 0.5 ML Intramuscular Suspension Prefilled Syringe Lot #: [id number] on: 26-May-2016 Pneumovax 23 25 MCG/0.5ML Injection Injectable on: 16-Jun-2016 Fluzone INJ on: 16-May-2017 Fluzone High-Dose 0.5 ML Intramuscular Suspension Prefilled Syringe Lot #: [id number] on: 17-Jun-2018 Family History Name Dates Details Family history of congestive heart failure (V17.49, Z82.49) Comments: Family History Status: Active Name Dates Details Family history of congestive heart failure (V17.49, Z82.49) Status: Active Name Dates Details Family history of coronary artery disease (V17.3, Z82.49) Status: Active Social History Name Dates Details - Status: Name Dates Details Never smoker Vital Signs Date Test Result Details [id number]:16 BP Systolic 135 mm[Hg] Status: Comments: Location: LUE; Position: Sitting BP Diastolic 74 mm[Hg] Status: Comments: Location: E; Position: Sitting Height 71 in Status: Weight 167 lb Status: Body Mass Index Calculated 23.29 kg/m2 Status: Body Surface Area Calculated 1.95 m2 Status: Temperature 97.9 f Status: Comments: Method: Temporal Heart Rate 77 /min Status: Respiration Rate 15 /min Status: Physical Findings 0 Status: Comments: Pain Scale Physical Findings 0 Status: Comments: Alcohol Screen - How many times in the past yr have you had 5 (for M) or 4 (for F) or 4 (for all > 65yrs) or more drinks in a day? Results Date Description Value Details 8-Uan-[id number]:50 [QLH] CMP W/EGFR GLUCOSE 90 mg/dl (Normal) Range: 65-139 Comments: Non-fasting reference interval UREA NITROGEN (BUN) 26 mg/dl (Above high threshold) Range: 7-25 CREATININE 0.93 mg/dl (Normal) Range: 0.50-0.99 Comments: For patients >49 years of age, the reference limitfor Creatinine is approximately 13% higher for peopleidentified as -Y[place]. eGFR NON- 64 {ML/MIN/1.7} (Normal) Range: > OR=60 eGFR 74 {ML/MIN/1.7} (Normal) Range: > OR=60 BUN/CREATININE RATIO 28 {CALC} (Above high threshold) Range: 6-22 SODIUM 139 mmol/L (Normal) Range: 135-146 POTASSIUM 5.0 mmol/L (Normal) Range: 3.5-5.3 CHLORIDE 100 mmol/L (Normal) Range: 98-110 CARBON DIOXIDE 32 mmol/L (Normal) Range: 20-32 CALCIUM 10.1 mg/dl (Normal) Range: 8.6-10.4 PROTEIN, TOTAL 7.4 g/dl (Normal) Range: 6.1-8.1 ALBUMIN 4.4 g/dl (Normal) Range: 3.6-5.1 GLOBULIN 3.0 {G/DL__CALC} (Normal) Range: 1.9-3.7 ALBUMIN/GLOBULIN RATIO 1.5 {CALC} (Normal) Range: 1.0-2.5 BILIRUBIN, TOTAL 0.3 mg/dl (Normal) Range: 0.2-1.2 ALKALINE PHSPHATASE 71 u/l (Normal) Range: 33-130 AST 17 u/l (Normal) Range: 10-35 ALT 16 u/l (Normal) Range: 6-29 6-[id number]:50 [[facility]] CBC (INCLUDES DIFF/PLT) WHITE BLOOD CELL COUNT 14.2 {Thousand/u} (Above high threshold) Range: 3.8-10.8 RED BLOOD CELL COUNT 4.35 {Million/uL} (Normal) Range: 3.80-5.10 HEMAGLOBIN 12.9 g/dl (Normal) Range: 11.7-15.5 HEMATOCRIT 37.7 % (Normal) Range: 35.0-45.0 MCV 86.7 fL (Normal) Range: 80.0-100.0 MCH 29.7 pg (Normal) Range: 27.0-33.0 MCHC 34.2 g/dl (Normal) Range: 32.0-36.0 RDW 12.8 % (Normal) Range: 11.0-15.0 PLATELET COUNT 335 {Thousand/u} (Normal) Range: 140-400 MPV 10.8 fL (Normal) Range: 7.5-12.5 ABSOLUTE NEUTROPHILS 6560 {cells/uL} (Normal) Range: 2556-7875 ABSOLUTE LYMPHOCYTES 6234 {cells/uL} (Above high threshold) Range: 850-3900 ABSOLUTE MONOCYTES 966 {cells/uL} (Above high threshold) Range: 200-950 ABSOLUTE EOSINOPHILS 369 {cells/uL} (Normal) Range: 15-500 ABSOLUTE BASOPHILS 71 {cells/uL} (Normal) Range: 0-200 NEUTROPHILS 46.2 % (Normal) LYMPHOCYTES 43.9 % (Normal) MONOCYTES 6.8 % (Normal) EOSINOPHILS 2.6 % (Normal) BASOPHILS 0.5 % (Normal) 1-Ngx-276474:50 [QLH] T4, FREE T4, FREE 1.1 ng/dl (Normal) Range: 0.8-1.8 9-Sfp-640188:50 [QLH] TSH, 3RD GENERATION W/REFLEX TO FT4 TSH, 3RD GENERATION W/REFLEX TO FT4 6.70 {MIU/L} (Above high threshold) Range: 0.40-4.50 :50 [Q] TESTOSTERONE, TOTAL, LC/MS/MS Comments: REPORT COMMENT:FASTING:NO TESTOSTERONE, TOTAL, LC/MS/MS 12 ng/dl Range: 2-45 Comments: Data from J Clin Invest 1974:53:819-828 and J Clin Endocrinol Metab 1973;36:8103-2084. Men with clinically significant hypogonadal symptoms and testosterone values repeatedly in the range of the 200-300 ng/dL or less, may benefit from testosterone treatment after adequate risk and benefits counseling. For additional information, please refer to http://education.[employer]/faq/JQX098 (This link is being provided for informational/ educational purposes only.) This test was developed and its analytical performance characteristics have been determined by [employer] [facility]. It has not been cleared or approved by the USFood and Drug Administration. This assay has been validated pursuant to the CLIA regulations and is used for clinical purposes. Plan of Care Name Dates Details Planned Observations Planned Goals not documented Instructions Name Dates Details Instructions not documented Encounters Appointment; SHAYNA JUAREZ M.D. Encounter Diagnosis: Problem not documented On: 22-Jul-2016 11:15 Appointment; YURI MINAYA M.D. Encounter Diagnosis: Problem not documented On: 28-Sep-2016 12:00 Appointment; JAMES KEY PNasirANasir Encounter Diagnosis: Problem not documented On: 06-Oct-2016 13:45 Appointment; WILTON GOLDEN NP Encounter Diagnosis: Problem not documented On: 27-Oct-2016 13:30 Appointment; YURI MINAYA M.D. Encounter Diagnosis: Problem not documented On: 02-Dec-2016 12:00 Appointment; JAMES KEY PNasirANasir Encounter Diagnosis: Problem not documented On: 21-Dec-2016 13:00 Appointment; JAMES KEY P.A. Encounter Diagnosis: Problem not documented On: 29-Jan-2017 13:00 Appointment; YURI MINAYA M.D. Encounter Diagnosis: Problem not documented On: 05-Feb-2017 9:00 Appointment; SHERRON HARRELL M.D. Encounter Diagnosis: Problem not documented On: 22-Feb-2017 14:00 Appointment; IVANNA TREVINO M.D. Encounter Diagnosis: Problem not documented On: 02-Mar-2017 10:45 Appointment; [facility], [facility] Encounter Diagnosis: Problem not documented On: 22-Mar-2017 9:00 Appointment; JAMES KEY PRandy Encounter Diagnosis: Problem not documented On: 23-Mar-2017 13:15 Appointment; IVANNA TREVINO M.D. Encounter Diagnosis: Problem not documented On: 30-Mar-2017 11:15 Appointment; YURI MINAYA M.D. Encounter Diagnosis: Problem not documented On: 26-Apr-2017 9:00 Appointment; MAT LUQUE P.A. Encounter Diagnosis: Problem not documented On: 24-May-2017 15:30 Appointment; [facility], [facility] Encounter Diagnosis: Problem not documented On: 29-Jun-2017 8:00 Appointment; IVANNA TREVINO M.D. Encounter Diagnosis: Problem not documented On: 29-Jun-2017 8:30 Appointment; [facility], [facility] Encounter Diagnosis: Problem not documented On: 01-Jul-2017 9:30 Appointment; IVANNA TREVINO M.D. Encounter Diagnosis: Problem not documented On: 16-Jul-2017 10:00 Appointment; SHERRON HARRELL M.D. Encounter Diagnosis: Problem not documented On: 17-Aug-2017 14:00 Appointment; CITLALLI COLEMAN NP Encounter Diagnosis: Problem not documented On: 30-Aug-2017 14:30 Appointment; CITLALLI COLEMAN NP Encounter Diagnosis: Problem not documented On: 01-Sep-2017 15:30 Appointment; CITLALLI COLEMAN NP Encounter Diagnosis: Problem not documented On: 07-Sep-2017 16:00 Appointment; YURI MINAYA M.D. Encounter Diagnosis: Problem not documented On: 24-Sep-2017 15:00 Appointment; SHERRON HARRELL M.D. Encounter Diagnosis: Problem not documented On: 19-Oct-2017 13:00 Appointment; YURI MINAYA M.D. Encounter Diagnosis: Problem not documented On: 25-Oct-2017 12:00 Appointment; SHERRON HARRELL M.D. Encounter Diagnosis: Problem not documented On: 01-Feb-2018 13:30 Appointment; CITLALLI COLEMAN NP Encounter Diagnosis: Problem not documented On: 08-Apr-2018 14:00 Appointment; YURI MINAYA M.D. Encounter Diagnosis: Problem not documented On: 17-Jun-2018 15:15
--- OUTSIDE RECORDS SUMMARY | 2018-09-22 19:35 | XMS REPORT | Summary of Care ---
Author Author [facility] Address Unknown Phone Unavailable Encounter HQ Lynn_hina(FIN) [id number] Date(s): 01/31/16 - 02/29/16 [facility] Discharge Disposition: Home Attending Physician: Rupesh Rowley MD Vital Signs No data available for this section Problem List Condition Effective Dates Status Health Status Informant Anxiety(Confirmed) Resolved Arthritis(Confirmed) Resolved Cholesterol Resolved level(Confirmed)1 Depression(Confirmed Resolved ) GERD - Resolved Gastro-esophageal reflux disease(Confirmed) Hypothyroidism(Confi Resolved rmed) MS (multiple 1983 Active sclerosis)(Confirmed ) 1high Allergies, Adverse Reactions, Alerts Substance Reaction Severity Status Ambien Active codeine Active Demerol HCl Active erythromycin Active Keflex Active penicillins Active Valium Active Medications No data available for this section [...] Smoking Cessation Counseling No Assessment and Plan No data available for this section
--- OUTSIDE RECORDS SUMMARY | 2018-09-22 19:35 | XMS REPORT | Summary of Care ---
Author Author [facility] Address Unknown Phone Unavailable Encounter HQ Willier_hina(FIN) [id number] Date(s): 03/02/16 - 03/31/16 [facility] Discharge Disposition: Home or Self Care Attending Physician: Rupesh Rowley MD Vital Signs [...]
--- NOTE | 2018-09-22 20:21 | Diagnostic Imaging Report ---
Radiographs of the left hand - 3 views HISTORY: Pain COMPARISON: None available. FINDINGS: Bones: Comminuted fractures involving the proximal phalanx of the left index finger with soft tissue swelling. Osseous alignment is within normal limits. Joints: Scattered degenerative change Soft tissues: No radiopaque foreign body IMPRESSION: Comminuted fractures involving the proximal phalanx of the left index finger with soft tissue swelling. Signed by: Dr. Washington Arroyo M.D. on 09/22/2018 8:17 PM
[2018-09-22 22:01] VITALS: BP 141/74
--- NOTE | 2018-09-22 22:05 | NUR ---
REQUESTED CD COPY OF XRAY FROM RADIOLOGY
== END 2018-09-22 22:16 | disposition home or self-care (01) ==
LOC: ER 19:32
DX: G89.11 Acute pain due to trauma (principal); S62.611A Displaced fracture of proximal phalanx of left index finger, initial encounter for closed fracture; V53.5XXA Driver of pick-up truck or van injured in collision with car, pick-up truck or van in traffic accident, initial encounter; Y92.488 Other paved roadways as the place of occurrence of the external cause
CPT/HCPCS: 99283

== ENCOUNTER 2018-12-24 16:44 | Emergency (ER) | payer MEDICARE ==
[~2018-12-24] VITALS: Ht 180.3 cm; Wt 78.0 kg
--- OUTSIDE RECORDS SUMMARY | 2018-12-24 16:47 | XMS REPORT | Continuity of Care Document ---
Author Author [facility] Interface Address Unknown Phone Unavailable Problems Problem Status Onset Date Classification Date Reported Comments Source Chest pain Active Problem 09/23/2018 [facility] Dyspnea on exertion Active Problem 09/23/2018 [facility] Medications Medication Details Route Status Patient Instructions Ordering Provider Order Date Source Alprazolam 0.25 Mg Tablet, 0.25 Mg Oral As Needed Active 08/20/2016 [facility] Melatonin 3 Mg Tablet, 6 Mg Oral Bedtime Active 08/20/2016 [facility] Amitriptyline Hcl 50 Mg Tablet Bedtime Active [facility] Fenofibrate Nanocrystallized (Fenofibrate) 145 Mg Tablet Active [facility] Fluoxetine Hcl 20 Mg Capsule Daily Active [facility] Gabapentin 300 Mg Capsule Bedtime Active [facility] Levothyroxine Sodium 100 Mcg Tablet Daily Active [facility] Omeprazole 40 Mg Capsule. Daily Active [facility] Pravastatin Sodium 20 Mg Tablet Daily Active [facility] Ropinirole Hcl 0.5 Mg Tablet Bedtime Active [facility] Tizanidine Hcl 4 Mg Tablet Daily Active [facility] Tramadol Hcl (Ultram) 50 Mg Tablet Bedtime as needed for Agitation Active [facility] Allergies, Adverse Reactions, Alerts Substance Category Reaction Severity Reaction type Status Date Reported Comments Source Penicillin Unknown Allergy to Substance Active 09/22/2018 [facility] Diazepam Unknown Allergy to Substance Active 09/22/2018 [facility] Codeine Unknown Allergy to Substance Active 09/22/2018 [facility] Cephalexin Unknown Allergy to Substance Active 09/22/2018 [facility] Erythromycin base Unknown Allergy to Substance Active 09/22/2018 [facility] Zolpidem Unknown Allergy to Substance Active 09/22/2018 [facility] Meperidine Unknown Allergy to Substance Active 09/22/2018 [facility] Immunizations Immunization Date Given Site Status Last Updated Comments Source Results Order Name Results Value Reference Range Date Interpretation Comments Source Vital Signs Vital Sign Value Date Comments Source Encounters Location Location Details Encounter Type Encounter Number Reason For Visit Attending Provider ADM Date DC Date Status Source Registered Emergency Room [id number] VENU MITCHELL MD 09/22/2018 [facility] Procedures Procedure Code Date Perfomer Comments Source
--- OUTSIDE RECORDS SUMMARY | 2018-12-24 16:47 | XMS REPORT ---
Author Author [facility] Address Unknown Phone Unavailable Care Team Providers Care Mooner Name Role Phone Rosa MITCHELL Unavailable Unavailable Problems This patient has no known problems. Allergies, Adverse Reactions, Alerts This patient has no known allergies or adverse reactions. Medications This patient has no known medications. Results Test Description Test Time Test Comments Text Results Atomic Results Result Comments HAND 3+ VIEWS LEFT 2018-09-22 20:16:00 [place] [address] Patient Name: CICI PURDY MR #: [id number] : 1950 Age/Sex: 68/F Req #: [id number] Adm Physician: Ordered by: VENU MITCHELL MD Report #: [id number] Location: ER Room/Bed: Procedure: [id number] DX/HAND 3+ VIEWS LEFT Exam Date: 09/22/18 Exam Time: 2007 REPORT STATUS: Signed Radiographs of the left hand - 3 views HISTORY: Pain COMPARISON: None available. FINDINGS: Bones: Comminuted fractures involving the proximal phalanx of the left index finger with soft tissue swelling. Osseous alignment is within normal limits. Joints: Scattered degenerative change Soft tissues: No radiopaque foreign body IMPRESSION: Comminuted fractures involving the proximal phalanx of the left index finger with soft tissue swelling. Signed by: Dr. Washington Arroyo M.D. on 09/22/2018 8:17 PM Dictated By: WASHINGTON ARROYO MD, MD 16 Transcribed By: NEERU on 09/22/182016 COPY TO: VENU MITCHELL MD
--- NOTE | 2018-12-24 17:27 | Diagnostic Imaging Report ---
HAND 3+ VIEWS RIGHT - 3 views HISTORY: Pain. right hand laceration. COMPARISON: None available. FINDINGS: Bones: Acute comminuted fracture of the distal phalanx of the third finger with soft tissue laceration. Joints: Degenerative changes in the DIP and PIP joints, carpal bones. Soft tissues: Benign 2 mm soft tissue calcification in the third finger along the ulnar aspect. IMPRESSION: Acute comminuted fracture of the distal phalanx of the third finger with soft tissue laceration. Signed by: Dr. Jean Marie Zapata M.D. on 12/24/2018 5:24 PM
[2018-12-24] MEDS ORDERED: CLINDAMYCIN PHOS 900MG/ 50ML 50 ML IV ONE (17:30)
[2018-12-24 17:55] LABS: BASOPHILS # (AUTO) 0.1 (0.0-0.1); BASOPHILS % 0.5 % (0.0-1.0); EOSINOPHILS # (AUTO) 0.3 (0.0-0.4); EOSINOPHILS % 3.6 % (0.0-6.0); HEMATOCRIT 38.4 % (34.2-44.1); HEMOGLOBIN 12.7 g/dL (12.0-16.0); LYMPHOCYTES # (AUTO) 4.9 (1.0-3.2); LYMPHOCYTES % 52.3 % (18.0-39.1); MEAN CORPUSCULAR HGB CONC 33.1 g/dL (31-35); MEAN CORPUSCULAR VOLUME 90.6 fL (81-99); MONOCYTES # (AUTO) 0.7 (0.2-0.8); MONOCYTES % 7.5 % (4.4-11.3); NEUTROPHILS # (AUTO) 3.4 (2.1-6.9); NEUTROPHILS % 35.9 % (38.7-80.0); PLATELET COUNT 316 x10e3/uL (140-360); RED BLOOD COUNT 4.24 x10e6/uL (3.6-5.1); RED CELL DISTRIBUTION WIDTH 12.7 % (11.7-14.4)
[2018-12-24 18:02] LABS: INR 0.84
[2018-12-24 18:03] LABS: PARTIAL THROMBOPLASTIN TIME 32.2 seconds (23.8-35.5)
[2018-12-24 18:12] LABS: ALANINE AMINOTRANSFERASE 34 IU/L (0-55); ALBUMIN 4.2 g/dL (3.5-5.0); ALBUMIN/GLOBULIN RATIO 1.1 (0.8-2.0); ALKALINE PHOSPHATASE 76 IU/L (40-150); ANION GAP 13.5 mmol/L (8-16); BLOOD UREA NITROGEN 12 mg/dL (7-26); BUN/CREATININE RATIO 16 (6-25); CALCIUM 9.8 mg/dL (8.4-10.2); CARBON DIOXIDE 27 mmol/L (22-29); CHLORIDE 104 mmol/L (98-107); CREATININE, SERUM 0.77 mg/dL (0.57-1.11); EST GLOMERULAR FILTRATION RATE > 60 ML/MIN (60-); GLUCOSE 114 mg/dL (74-118); POTASSIUM 3.5 mmol/L (3.5-5.1); SODIUM 141 mmol/L (136-145)
[2018-12-24] MEDS ORDERED: LIDOCAINE HCL 1% LOCAL INJ 20 ML VIAL INJ ONE (18:15)
[2018-12-24] MEDS ORDERED: LEVOFLOXACIN 500MG/D5W 100ML 100 ML IV ONE (18:30)
[2018-12-24] MEDS ORDERED: MUPIROCIN 2% OINT 22 GM TUBE TOP ONE (19:00)
[2018-12-24] MEDS ORDERED: TRAMADOL HCL 50 MG TAB PO ONE (19:15)
[2018-12-24 19:29] VITALS: BP 182/81
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
[2019-01-02] MEDS ORDERED: HYDROCODON-ACE1 EA16 PO (14:49)
[2019-01-02] MEDS ORDERED: ULTRAM50 MG PO (14:50)
== END 2018-12-24 19:35 | disposition home or self-care (01) ==
LOC: ER 16:44
DX: S61.352A Open bite of right middle finger with damage to nail, initial encounter (principal); S68.122A Partial traumatic metacarpophalangeal amputation of right middle finger, initial encounter; S62.632B Displaced fracture of distal phalanx of right middle finger, initial encounter for open fracture; W54.0XXA Bitten by dog, initial encounter; Y92.008 Other place in unspecified non-institutional (private) residence as the place of occurrence of the external cause
CPT/HCPCS: 11010; 26735; 36415; 73130; 80053; 85025; 85610; 85730; 99284; J1956; J2001

== ENCOUNTER → 2019-01-03 | Day surgery (SDC) | payer MEDICARE ==
--- NOTE | 2019-01-02 16:38 | Diagnostic Imaging Report ---
EXAMINATION: CHEST 2 VIEWS INDICATION: Preoperative radiographs. COMPARISON: None FINDINGS: TUBES and LINES: None. LUNGS: Lungs are well inflated. There is no evidence of pneumonia or pulmonary edema. Mild patchy left basilar opacity, likely atelectasis. PLEURA: No pleural effusion or pneumothorax. HEART AND MEDIASTINUM: The cardiomediastinal silhouette is unremarkable. BONES AND SOFT TISSUES: No acute osseous abnormality. UPPER ABDOMEN: No free air under the diaphragm. IMPRESSION: No acute radiographic abnormality. Signed by: Dr. Tj Vasquez MD on 01/02/2019 4:35 PM
[~2019-01-03] MED LIST changes: +BACITRACIN 50,000 UNIT VIAL ONE; +BUPIVACAINE HCL 0.5% INJ 30 ML VIAL INJ ONE; +CLINDAMYCIN 600MG / 50ML 50 ML IV ONE; +DEXAMETHASONE SOD PHOS INJ 4 MG/ML VIAL ONE; +FENTANYL CITRATE/PF 100MCG/2 ML INJ ONE; +HYDROCODON-ACE1 EA16 PO; +KETOROLAC TROMETHAMINE 30 MG/ML VIAL ONE; +LIDOCAINE HCL 2% LOCAL INJ 5 ML SDV VIAL INJ ONE; +MIDAZOLAM HCL 2 MG/2 ML VIAL ONE; +MUPIROCIN 2% OINT 22 GM TUBE ONE; +ONDANSETRON HCL INJ 2MG/ML 2ML 2 MG/ML VIAL ONE; +PROPOFOL IV EMULSION 10 MG/ML 20 ML VIAL ONE; +SEVOFLURANE INHAL SOLN 250 ML PEN BTL ONE
--- OUTSIDE RECORDS SUMMARY | 2019-01-03 06:50 | XMS REPORT | Continuity of Care Document ---
Author Author [facility] Interface Address Unknown Phone Unavailable Problems Problem Status Onset Date Classification Date Reported Comments Source Chest pain Active Problem 12/25/2018 [facility] Dyspnea on exertion Active Problem 12/25/2018 [facility] Medications Medication Details Route Status Patient Instructions Ordering Provider Order Date Source Alprazolam 0.25 Mg Tablet, 0.25 Mg Oral As Needed Active 08/20/2016 [facility] Melatonin 3 Mg Tablet, 6 Mg Oral Bedtime Active 08/20/2016 [facility] Amitriptyline Hcl 50 Mg Tablet Bedtime Active [facility] Fenofibrate Nanocrystallized (Fenofibrate) [address] [facility] Fluoxetine Hcl 20 Mg Capsule Daily Active [facility] Gabapentin 300 Mg Capsule Bedtime Active [facility] Levothyroxine Sodium 100 Mcg Tablet Daily Active [facility] Omeprazole 40 [address] Caps[address]. Daily Active [facility] Pravastatin Sodium 20 Mg Tablet Daily Active [facility] Ropinirole Hcl 0.5 Mg Tablet Bedtime Active [facility] Tizanidine Hcl 4 Mg Tablet Daily Active [facility] Tramadol Hcl (Ultram) 50 Mg Tablet Bedtime as needed for Agitation Active [facility] Allergies, Adverse Reactions, Alerts Substance Category Reaction Severity Reaction type Status Date Reported Comments Source Penicillin Unknown Allergy to Substance Active 09/22/2018 [facility] Diazepam Unknown Allergy to Substance Active 09/22/2018 [facility] Codeine Unknown Allergy to Substance Active 09/22/2018 [facility] Cephalexin Unknown Allergy to Substance Active 09/22/2018 [facility] Erythromycin base Unknown Allergy to Substance Active 09/22/2018 [facility] Zolpidem Unknown Allergy to Substance Active 09/22/2018 [facility] Meperidine Unknown Allergy to Substance Active 09/22/2018 [facility] Immunizations Immunization Date Given Site Status Last Updated Comments Source Results Order Name Results Value Reference Range Date Interpretation Comments Source Blood leukocytes automated count (number/volume) 9.37 4.8 - 10.8 12/24/2018 [facility] Blood erythrocytes automated count (number/volume) 4.24 3.6 - 5.1 12/24/2018 [facility] Blood hemoglobin measurement (moles/volume) 12.7 12.0 - 16.0 12/24/2018 [facility] Automated blood hematocrit (volume fraction) 38.4 34.2 - 44.1 12/24/2018 [facility] Automated erythrocyte mean corpuscular volume 90.6 81 - 99 12/24/2018 [facility] Automated erythrocyte mean corpuscular hemoglobin (mass per erythrocyte) 30.0 28 - 32 12/24/2018 [facility] Automated erythrocyte mean corpuscular hemoglobin concentration measurement (mass/volume) 33.1 31 - 35 12/24/2018 [facility] RDW BldCo-Rto 12.7 11.7 - 14.4 12/24/2018 [facility] Automated blood platelet count (count/volume) 316 140 - 360 12/24/2018 [facility] Automated blood segmented neutrophil count as percentage of total leukocytes 35.9 38.7 - 80.0 12/24/2018 [facility] Automated blood lymphocyte count as percentage ot total leukocytes 52.3 18.0 - 39.1 12/24/2018 [facility] Automated blood monocyte count as percentage of total leukocytes 7.5 4.4 - 11.3 12/24/2018 [facility] Automated blood eosinophil count as percentage of total leukocytes 3.6 0.0 - 6.0 12/24/2018 [facility] Automated blood basophil count as percentage of total leukocytes 0.5 0.0 - 1.0 12/24/2018 [facility] IM GRANULOCYTES % 0.2 0.0 - 1.0 12/24/2018 [facility] Automated blood neutrophil count 3.4 2.1 - 6.9 12/24/2018 [facility] Blood lymphocytes count (number/volume) 4.9 1.0 - 3.2 12/24/2018 [facility] Blood monocytes automated count (number/volume) 0.7 0.2 - 0.8 12/24/2018 [facility] Automated blood eosinophil count 0.3 0.0 - 0.4 12/24/2018 [facility] Automated blood basophil count (count/volume) 0.1 0.0 - 0.1 12/24/2018 [facility] Absolute Immature Granulocyte (auto 0.02 0 - 0.1 12/24/2018 [facility] Prothrombin time (PT) in platelet poor plasma by coagulation assay 12.0 11.9 - 14.5 12/24/2018 [facility] INR in Platelet poor plasma by Coagulation assay 0.84 12/24/2018 [facility] Activated partial thromboplastin time (aPTT) in platelet poor plasma bycoagulation assay 32.2 23.8 - 35.5 12/24/2018 [facility] Serum or plasma sodium measurement (moles/volume) 141 136 - 145 12/24/2018 [facility] Serum or plasma potassium measurement (moles/volume) 3.5 3.5 - 5.1 12/24/2018 [facility] Serum or plasma chloride measurement (moles/volume) 104 98 - 107 12/24/2018 [facility] Serum or plasma carbon dioxide, total measurement (moles/volume) 27 22 - 29 12/24/2018 [facility] Serum or plasma anion gap 13.5 8 - 16 12/24/2018 [facility] Serum or plasma urea nitrogen measurement (mass/volume) 12 7 - 26 12/24/2018 [facility] Serum or plasma creatinine measurement (mass/volume) 0.77 0.57 - 1.11 12/24/2018 [facility] Serum or plasma urea nitrogen/creatinine mass ratio 16 6 - 25 12/24/2018 [facility] Estimated glomerular filtration rate (GFR) determination > 60 60 12/24/2018 [facility] Glucose measurement 114 74 - 118 12/24/2018 [facility] Serum or plasma calcium measurement (mass/volume) 9.8 8.4 - 10.2 12/24/2018 [facility] Serum or plasma total bilirubin measurement (mass/volume) 0.6 0.2 - 1.2 12/24/2018 [facility] Aspartate Amino Transf (AST/SGOT) 25 5 - 34 12/24/2018 [facility] Serum or plasma alanine aminotransferase measurement (enzymatic activity/volume) 34 0 - 55 12/24/2018 [facility] Serum or plasma protein measurement (mass/volume) 7.9 6.5 - 8.1 12/24/2018 [facility] Serum or plasma albumin measurement (mass/volume) 4.2 3.5 - 5.0 12/24/2018 [facility] Plasma globulin measurement (mass/volume) 3.7 2.3 - 3.5 12/24/2018 [facility] Serum or plasma albumin/globulin mass ratio 1.1 0.8 - 2.0 12/24/2018 [facility] Serum or plasma alkaline phosphatase measurement (enzymatic activity/volume) 76 40 - 150 12/24/2018 [facility] Vital Signs Vital Sign Value Date Comments Source Encounters Location Location Details Encounter Type Encounter Number Reason For Visit Attending Provider ADM Date DC Date Status Source Departed Emergency Room [id number] VENU MITCHELL MD 09/22/2018 09/22/2018 [facility] Departed Emergency Room [id number] PABLITO BUSH MD 12/24/2018 12/24/2018 [facility] Procedures Procedure Code Date Perfomer Comments Source APPLICATION OF FINGER SPLINT [id number] 09/22/2018 [facility]
[2019-01-03 10:45] VITALS: BP 138/71
--- NOTE | 2019-01-03 15:09 | Operative Report ---
DATE OF PROCEDURE: 01/03/2019 SURGEON: Felipe Rush MD PREOPERATIVE DIAGNOSES: Dog bite, crush injury, open fracture of right long finger distal phalanx. POSTOPERATIVE DIAGNOSES: Dog bite, crush injury, open fracture of right long finger distal phalanx. PROCEDURE: 1. Open reduction and percutaneous pinning of right long finger distal phalanx. 2. Nail bed repair. ANESTHESIA: General. HISTORY: The patient is a 68-year-old [id number] female, who broke up an altercation between two dogs and sustained a crushing injury to the right long finger distal phalanx. She was seen initially in the emergency room, where incomplete avulsion of the distal portion of the distal phalanx was identified. The wound was copiously irrigated and the soft tissues were loosely approximated at that time. The patient now presents for definitive open reduction and percutaneous pinning of right long finger distal phalanx fracture and repair of nail bed. The risks, benefits, and alternatives of treatment were discussed with the patient and she is prepared to undergo the procedure as outlined. PROCEDURE IN DETAIL: The patient was marked preoperatively in the holding area. She was brought to the operating theater. After the induction of adequate general anesthesia, she was prepped and draped in a supine position. A time-out was performed. The right upper extremity was exsanguinated and tourniquet was inflated to a pressure of 250 mmHg. The nail plate was avulsed from the nail bed carefully using the periosteal elevator. At this point, the nail bed was completely transected in an oblique transverse fashion. The fracture fragments were distracted and hematoma was irrigated and inspection of the distal phalanx fragments was done. Under direct visualization, the fragments were reduced and the fluoroscope was brought in and verified the adequacy of the reduction. A 0.035 K-wire was then driven retrograde across the distal portion of the distal phalanx across the fracture site and transfixing the distal fragment to the base of the distal phalanx. of the reduction was performed in three planes. At this point, the pin was cut and bent over external to the skin. At this juncture, the edges of the nail bed were approximated using 6-0 chromic suture in an interrupted fashion and the entire transverse width of the nail bed was repaired. At this point, an artificial nail was cut and placed beneath the eponychial fold. It was sutured to the eponychial fold and to the distal soft tissues using 5-0 nylon suture. A Marcaine field block was performed at the base of the right long finger, a total of 6 mL was used. The tourniquet was deflated. All the fingers pinked up nicely and a sterile bulky conforming bandage was applied to the right long finger. A foam aluminum splint was added externally to protect the finger and held in place with loosely wrapped Coban. The patient tolerated the procedure well, was brought to recovery room in satisfactory condition and discharged with a postoperative instruction sheet as well as a followup appointment. MD MCKENNA Malave/YECENIA /[id number]
== END | disposition home or self-care (01) ==
LOC: OR 06:47
PROVIDERS: ATTEND Plastic Surgery
DX: S62.632B Displaced fracture of distal phalanx of right middle finger, initial encounter for open fracture (principal); K58.9 Irritable bowel syndrome, unspecified; K21.9 Gastro-esophageal reflux disease without esophagitis; E03.9 Hypothyroidism, unspecified; F32.9 Major depressive disorder, single episode, unspecified; F41.9 Anxiety disorder, unspecified; Z88.6 Allergy status to analgesic agent; W54.0XXA Bitten by dog, initial encounter; Z88.1 Allergy status to other antibiotic agents; Z88.0 Allergy status to penicillin; Z88.8 Allergy status to other drugs, medicaments and biological substances; Z01.810 Encounter for preprocedural cardiovascular examination; Z01.818 Encounter for other preprocedural examination
CPT/HCPCS: 11760; 26765; 71046; 93005; C1713; J1100; J1885; J2001; J2250; J2405; J2704